=== PATIENT | male | born 1930 | race Caucasian/White ===

== ENCOUNTER 2016-12-01 18:08 | Inpatient (IN) | payer OTHER ==
[~2016-12-01] VITALS: Ht 177.8 cm; Wt 65.9 kg
[~2016-12-01 18:08] MED LIST: ASPIRIN EC81 M1 PO; ATORVASTATIN CA20 MG PO; Aspirin PO; DORZOLAMIDE HYD10 M5 OPH; LOPRESSOR 6.26.25 MG PO; PRINIVIL10 MG PO; TIMOPTIC OPH; [UNRECOGNIZED DRUG - OTHER] OPH
--- NOTE | 2016-12-01 18:20 | ED DYSPNEA/ASTHMA COMPLAINT ---
See Addendum History of Present Illness General Chief Complaint: Dyspnea (COPD, CHF, Other) Stated Complaint: SOB PAST COUPLE DAYS, WORSE TODAY Source: patient, family, EMS Exam Limitations: no limitations Vital Signs & Intake/Output Vital Signs & Intake/Output Vital Signs Date Time Temp Pulse Resp B/P Pulse O2 O2 Flow FiO2 Ox Delivery Rate 12/02 1326 79 145/73 12/02 1200 98 Nasal 2.0L Cannula 12/02 0800 98.3 80 20 152/84 98 Nasal 2.0L Cannula 12/02 0800 100 Nasal 2.0L Cannula 12/02 0505 99 Nasal 2.0L Cannula 12/02 0400 96 Nasal 2.0L Cannula 12/02 0139 98 Nasal 2.0L Cannula 12/02 0139 97.6 88 20 150/80 98 Nasal 1.0L Cannula 12/02 0010 96.8 87 16 112/64 97 Nasal 2.0L Cannula 12/01 2239 96.8 92 24 121/64 92 Nasal 2.0L Cannula 12/01 1958 97.0 87 20 125/70 95 Nasal 2.0L Cannula 12/01 1856 92 Nasal 3.0L Cannula 12/01 1854 92 Nasal 3.0L Cannula 12/01 1834 99 Nasal 3.0L Cannula 12/01 1811 97.2 87 20 124/62 89 Room Air Room Air ED Intake and Output 12/02 0000 12/01 1200 Intake Total 0 Output Total Balance 0 Intake, Oral 0 Patient 148 lb Weight Allergies Coded Allergies: Penicillins (UNKNOWN 12/01/16) Reconcile Medications Albuterol Sulfate (Proair Hfa) 90 MCG HFA.AER.AD 2 PUF INH Q4-6 PRN PRN SOB, DYSPNEA/WHEEZE (Reported) Aspirin (Ecotrin*) 81 MG TABLET.DR 1 TAB PO DAILY HEART/BLOOD (Reported) Dorzolamide HCl/Timolol Maleat (Dorzolamide-Timolol Eye Drops) 22.3 MG-6.8 MG/ML DROPS 1 GTT OPH BID BOTH EYES (Reported) Latanoprost (Xalatan) 0.005 % DROPS 1 GTT OPH QPM BOTH EYES (Reported) Lisinopril 40 MG TABLET 1 TAB PO DAILY BP (Reported) Metoprolol Tartrate 25 MG TABLET 0.5 TAB PO QAM HEART/BP (Reported) Nifedipine (Procardia XL) 90 MG TAB.ER.24 1 TAB PO DAILY HEART/BP (Reported) Prednisone 10 MG TABLET 1 TAB PO BID STEROID (Reported) Triage Nurses Notes Reviewed? yes Onset: Abrupt Duration: day(s):, constant, continues in ED Timing: recent history Severity: moderate, severe HPI: 85-year-old male with a history of hypertension and smoker comes into emergency room for further evaluation of shortness of breath. Patient has been sick for the last couple weeks with a cough and mucus production. Patient was on an oral course of antibiotics and had a chest x-ray which was normal he reports. He reports that today while he was washing up she became very short of breath. He denies any chest pain. Denies any fevers vomiting her sweating. There is no diagnosis of COPD. He sees Dr. Cuevas from cardiology for blood pressure. (STEVE DE LEON) Past History Medical History Any Pertinent Medical History? see below for history Neurological: NONE EENT: cataracts Cardiovascular: hypertension, hyperlipidemia Respiratory: PULMONARY NODULES Gastrointestinal: GERD, ULCERS Hepatic: NONE Renal: NONE Musculoskeletal: NONE Psychiatric: NONE Endocrine: BORDERLINE DM Blood Disorders: NONE Cancer(s): NONE PSYCH ASSISTANT/Reproductive: NONE Other Medical Hx: BPH History of MRSA: No History of VRE: No History of CDIFF: No Surgical History Surgical History: non-contributory Psychosocial History Who do you live with Spouse Services at Home None What is your primary language Austrian Family History Family History, If Any: FATHER Cardiomegaly, Onset: 30-40. BROTHER FH: pancreatic cancer, Onset: 25-30. SISTER FH: breast cancer Hx Contributory? No (STEVE DE LEON) Review of Systems Review of Systems Constitutional: Reports: no symptoms. EENTM: Reports: no symptoms. Respiratory: Reports: see HPI. Cardiovascular: Reports: no symptoms. GI: Reports: no symptoms. Genitourinary: Reports: no symptoms. Musculoskeletal: Reports: no symptoms. Skin: Reports: no symptoms. Neurological/Psychological: Reports: no symptoms. Hematologic/Endocrine: Reports: no symptoms. Immunologic/Allergic: Reports: no symptoms. All Other Systems: Reviewed and Negative (STEVE DE LEON) Physical Exam Physical Exam General Appearance: well developed/nourished, mild distress, thin Head: atraumatic, normal appearance Eyes: Bilateral: normal appearance, EOMI. Ears, Nose, Throat: normal ENT inspection, hearing grossly normal Neck: normal inspection Respiratory: decreased breath sounds, respiratory distress (MILD) Cardiovascular: regular rate/rhythm Gastrointestinal: soft Extremities: MILD CLUBBING OF THE FINGERNAILS, Neurologic/Psych: awake, alert, oriented x 3 Skin: intact, normal color Core Measures ACS in differential dx? Yes Severe Sepsis Present: No Septic Shock Present: No (RC CROSS,STEVE) Progress Differential Diagnosis: asthma, AMI, bronchitis, costochondritis, CHF, COPD, musculoskeletal pain, pericarditis, pulmonary embolism, pneumonia, pneumothorax, rib fracture, unstable angina Plan of Care: Orders Procedure Date/time Status ANTINUCLEAR ANTIBODY 12/02 UNK Active Heart Healthy Diet 12/02 B Active PARTIAL THROMBOPLASTIN TIME 12/02 1430 Active CBC WITHOUT DIFFERENTIAL 12/02 1200 Complete TROPONIN LEVEL 12/02 0630 Complete CBC WITHOUT DIFFERENTIAL 12/02 0630 Complete EKG 12/02 0630 Active OXYGEN SETUP (GEN) 12/02 0507 Complete PARTIAL THROMBOPLASTIN TIME 12/02 0400 Complete CULTURE,URINE 12/02 0229 Active Heparin Drip- AFIB/FLUTTER/PE/ 12/02 0154 Active Weight 12/02 0116 Active Turn and Reposition 12/02 0116 Active Teach/Educate 12/02 011 Active Skin Integrity Protocol 12/02 011 Active Skin/Pressure Ulcer Assess (Sk 12/02 0116 Active Precautions 12/02 0116 Active Pain Treatment and Response 12/02 0116 Active Nutritional Intake, Monitor 12/02 0116 Active Isolation 12/02 0116 Active Patient Care Conference 12/02 0116 Active Activity/Ambulation 12/02 0116 Active TROPONIN LEVEL 12/02 0030 Complete EKG 12/02 0030 Active Code Status 12/02 0017 Active VRE ACTIVE SURVIELLANCE 12/02 0008 Active ACTIVE SURVEILLANCE NARES 12/02 0008 Active Lab Add-on Test 12/02 UNK Active Aguirre, Insertion/Removal/Asses 12/02 UNK Active ICU LAB BUNDLE 12/02 UNK Complete ECHOCARDIOGRAM 12/02 UNK Active Pathway - chart 12/01 2251 Active Patient Data 12/01 2251 Active Admit to inpatient 12/01 2241 Active Patient Data 12/01 2232 Active Add-on Test (ER Only) 04/04 2153 Active PARTIAL THROMBOPLASTIN TIME 12/01 1945 Complete PROTHROMBIN TIME 12/01 194 Complete D-DIMER 12/01 193 Complete ARTERIAL BLOOD GAS (GEN) 12/01 1924 Complete Add-on Test (ER Only) 12/01 1924 Active Telemetry/Manager Local 12/01 181 Complete TROPONIN LEVEL 12/01 1816 Complete COMPREHENSIVE METABOLIC PANEL 12/01 1816 Complete CBC WITHOUT DIFFERENTIAL 12/01 1816 Complete B-TYPE NATRIURETIC PEP (BNP) 12/01 1816 Complete EKG 12/01 1816 Active House Staff 12/01 UNK Active VTE Mechanical Prophylaxis 12/01 UNK Active Vital Signs 12/01 UNK Active Intake & Output 12/01 UNK Active Current Medications Sig/Joselin Start time Last Medication Dose Stop Time Status Admin Apixaban 5 MG BID 12/09 1000 AC (Eliquis) Dorzolamide HCl 1 GTT BID 12/03 1000 AC (Trusopt 2% 10 ML) Latanoprost 1 GTT QPM 12/02 2200 AC (Xalatan) Dorzolamide HCl 1 GTT BID 12/02 1107 CAN (Trusopt 2% 10 ML) Aspirin Buffered 81 MG DAILY 12/02 1000 CAN (Ecotrin) Acetaminophen 650 MG Q6 PRN 12/01 2300 AC (Tylenol) Oxycodone HCl 5 MG Q6 PRN 12/01 2300 AC (Roxicodone) Oxycodone/ 2 TAB Q6 PRN 12/01 2300 AC Acetaminophen (Percocet) Laboratory Tests 12/02/16 1230: APTT Cancelled 12/02/16 1200: CBC w Diff NO MAN DIFF REQ, RBC 4.02 L, MCV 89.3, MCH 29.8, RDW 14.8 H, MPV 8.0, Gran % 86.8 H, Lymphocytes % 5.2 L, Monocytes % 7.9, Eosinophils % 0, Basophils % 0.1, Absolute Granulocytes 11.0 H, Absolute Lymphocytes 0.7 L, Absolute Monocytes 1.0 H, Absolute Eosinophils 0, Absolute Basophils 0, PUBS MCHC 33.4 12/02/16 1000: JELLY Titer Pending, Anti-Nuclear Antibody Pending 12/02/16 0635: Troponin I 0.50 *H, CBC w Diff NO MAN DIFF REQ, RBC 3.91 L, MCV 89.1, MCH 29.7, RDW 14.2, MPV 8.1, Gran % 91.5 H, Lymphocytes % 5.1 L, Monocytes % 3.3, Eosinophils % 0, Basophils % 0.1, Absolute Granulocytes 8.1 H, Absolute Lymphocytes 0.5 L, Absolute Monocytes 0.3, Absolute Eosinophils 0, Absolute Basophils 0, PUBS MCHC 33.3 12/02/16 0420: Anion Gap 12, Estimated GFR 44 L, Glucose 144 H, Calcium 8.5, Phosphorus 3.5, Magnesium 1.9, Total Bilirubin 0.7, AST 21, ALT 31, Albumin 3.0 L, APTT > 120 * H 12/02/1644: Troponin I 0.68 *H 12/01/161945: PT 13.6 H, INR 1.30 H, APTT 27, D-Dimer 3722 H 12/01/161944: pH 7.46 H, pCO2 25 L, pO2 67 L, HCO3 17 L, ABG O2 Sat (Measured) 93.0 L, P- 50 (Temp Corrected) N, Carboxyhemoglobin 0.1 L, O2 Concentration % 2L, Temperature 97.2, O2 Delivery Method NC, Phlebotomy Draw Site RIGHT BRACHIAL 12/01/161822: Anion Gap 13, Estimated GFR 36 L, BUN/Creatinine Ratio 20.0, Glucose 170 H, Calcium 9.8, Total Bilirubin 1.1, AST 29, ALT 32, Alkaline Phosphatase 111, Troponin I 1.17 *H, Etx-E-Yipyrseljdy Pept 5690 H, Total Protein 7.0, Albumin 3.9, Globulin 3.1, Albumin/Globulin Ratio 1.3, CBC w Diff NO MAN DIFF REQ, RBC 4.97, MCV 89.3, MCH 29.4, RDW 14.7 H, MPV 7.7, Gran % 77.1 H, Lymphocytes % 12.9 L, Monocytes % 8.1, Eosinophils % 1.1, Basophils % 0.8, Absolute Granulocytes 8.4 H, Absolute Lymphocytes 1.4, Absolute Monocytes 0.9 H, Absolute Eosinophils 0.1, Absolute Basophils 0.1, PUBS MCHC 33.0 Microbiology 12/02 244 URINE ROUT: Urine Culture - RECD 12/02 44 UPPER RESP: Surveillance Culture - RECD 12/02 44 GI: Surveillance Culture - RECD Diagnostic Imaging: Viewed by Me: Radiology Read. Discussed w/RAD: Radiology Read. Radiology Impression: EXAM TYPE: RAD - XRY-PORTABLE CHEST XRAY EXAMINATION: XR PORTABLE CHEST CLINICAL INFORMATION: Shortness of breath. COMPARISON: Chest . CT chest 03/27/2015 05/01/2014. TECHNIQUE: Portable AP view of the chest was obtained. FINDINGS: Both lungs are fairly well-expanded and clear of acute pneumonic process. There is a 1.1 cm nodule right upper lobe overlying the posterior fourth ribs and 1.4 standard the lingula. They have been described on the previous CT chest exam 05/01/2014 and 03/27/2015. No additional lesions seen. The heart size and pulmonary vascularity is normal. No gross bony abnormality noted. IMPRESSION: No acute cardiopulmonary process seen. 2 pulmonary nodules are seen. These were described on the previous CT chest exam 2013 and 2014 exam. DICTATED BY: AMIRA WEST MD DATE/TIME DICTATED:12/01/161836 CHAIRMAN AND CEO:UMESH DATE/TIME TRANSCRIBED:12/01/161836 Initial ED EKG: normal intervals, normal p-waves, normal sinus rhythm, rate (91) , nonspecific ST T wave chg Prior EKG: changed Comments: 12/01/2016 9:32:03 PM Case was discussed with Dr. Cuevas and Dr. Gomes. Due to high suspicion for pulmonary embolism and the patient had normal creatinines in the past of 1.1 and only one isolated 1.9 creatinine, patient was hydrated with fluids HERE in ED and it was decided to go ahead with the CT angiogram of his chest to rule out pulmonary embolism. I spoke with radiologist and we will give fluids before and after the contrast study. At this time the risk of misdiagnosis outweighs the risk of any type of potential kidney failure from the dye. (STEVE DE LEON) Departure Departure Disposition: STILL A PATIENT Condition: Stable Clinical Impression Primary Impression: Acute electrocardiogram changes Secondary Impressions: Multiple pulmonary emboli, Troponin level elevated Referrals: MARIPOSA GONZALEZ,SARA (PCP/Family) Departure Forms: Customer Survey General Discharge Information Admission Note Spoke With: BOLA GONZALEZ PhD,OFELIA Dawson Documentation of Exam: Documentation of any treatments & extenuating circumstances including Concerns Regarding Discharge (functional status, medication knowledge or non-compliance, living conditions, etc.) that warrant an admission rather than observation: Patient has acute EKG changes. Patient will require cardiac telemetry. Cardiac consultation. Serial troponins. Pulmonary consult. Supplemental oxygen. O2 saturation 89% to 90% on room air. High risk. Patient do poorly as an outpatient. IV heparin, critical care. Dr gomes consulted with dr galeano. Stable for admission at this time. (STEVE DE LEON) PA/MOUNT LOADER Co-Sign Statement Statement: ED Attending supervision documentation- [X] I saw and evaluated the patient. I have also reviewed all the pertinent lab results and diagnostic results. I agree with the findings and the plan of care as documented in the PA's/MOUNT LOADER's documentation. [X] I have reviewed the ED Record and agree with the PA's/MOUNT LOADER's documentation. [] Additions or exceptions (if any) to the PAs/MOUNT LOADER's note and plan are summarized below: [] (WAQAS GONZALEZ,FERNANDA) Critical Care Note Critical Care Note Critical Care Time: 30-74 min (45) (STEVE DE LEON)
--- NOTE | 2016-12-01 18:30 | NUR ---
PT BIBA FROM HOME FOR INCREASED SOB. PT RECENTLY DIAGNOSED WITH URI, AND FINISHED COURSE OF ANTIBIOTICS A COUPLE OF DAYS AGO. PT ARRIVES WITH NO ACUTE DISTRESS NOTED, PT REPORTS DYSPNEA ON EXERTION AND ALSO REPORTS FEELING BETTER WHEN LYING DOWN. PT'S O2 SAT 89% ON RA. PLACED ON 2L NC OXYGEN.
--- NOTE | 2016-12-01 18:36 | NUR ---
LAB GISSEL AND ROBERT. (SST, LAV, BLUE, BOO, PINK)
[2016-12-01 18:37] LABS: ABSOLUTE BASOPHIL COUNT 0.1 /CUMM (0.0-0.2); ABSOLUTE EOSINOPHIL COUNT 0.1 /CUMM (0.0-0.7); ABSOLUTE GRANULOCYTE CT 8.4 /CUMM (1.4-6.5); ABSOLUTE LYMPH COUNT 1.4 /CUMM (1.2-3.4); ABSOLUTE MONOCYTE COUNT 0.9 /CUMM (0.10-0.60); BASOPHIL % 0.8 % (0.0-2.0); EOSINOPHIL % 1.1 % (0-5); GRANULOCYTE % 77.1 % (42.2-75.2); HEMATOCRIT 44.3 % (42-52); MEAN CORPUSCULAR HGB 29.4 PG (27.0-31.0); MEAN CORPUSCULAR VOLUME 89.3 FL (80.0-94.0); MEAN PLATELET VOLUME 7.7 FL (7.4-10.4); PLATELET COUNT 323 /CUMM (130-400); RBC DISTRIBUTION WIDTH 14.7 % (11.5-14.5); RED BLOOD CELL CT 4.97 /CUMM (4.70-6.10); WHITE BLOOD CELL COUNT 10.9 /CUMM (4.8-10.8)
[2016-12-01] MEDS ORDERED: PREDNISONE10 M2 PO (18:40)
[2016-12-01] MEDS ORDERED: PROAIR HFA8.5 GM INH (18:40)
[2016-12-01] MEDS ORDERED: PROCARDIA XL90 M1 PO (18:40)
[2016-12-01] MEDS ORDERED: METOPROLOL TART25 M1 PO (18:41)
[2016-12-01] MEDS ORDERED: LISINOPRIL40 M1 PO (18:41)
[2016-12-01] MEDS ORDERED: XALATAN2.5 ML OPH (18:41)
[2016-12-01] MEDS ORDERED: DORZOLAMIDE-TIM10 ML OPH (18:42)
--- NOTE | 2016-12-01 18:46 | NUR ---
EKG DONE BY STUDENT
--- NOTE | 2016-12-01 18:48 | RADIOLOGY REPORT ---
EXAMINATION: XR PORTABLE CHEST CLINICAL INFORMATION: Shortness of breath. COMPARISON: Chest 11/20/2016. CT chest 03/27/2015 05/01/2014. TECHNIQUE: Portable AP view of the chest was obtained. FINDINGS: Both lungs are fairly well-expanded and clear of acute pneumonic process. There is a 1.1 cm nodule right upper lobe overlying the posterior fourth ribs and 1.4 standard the lingula. They have been described on the previous CT chest exam 05/01/2014 and 03/27/2015. No additional lesions seen. The heart size and pulmonary vascularity is normal. No gross bony abnormality noted. IMPRESSION: No acute cardiopulmonary process seen. 2 pulmonary nodules are seen. These were described on the previous CT chest exam 2013 and 2014 exam.
--- NOTE | 2016-12-01 19:17 | NUR ---
CRITICAL TEST RESULTS [id number] LAURIE DUNHAM 85 M TESTS AND RESULTS: TROPONIN 1.17 Results received and read back by: CARMELLA OSBORN Results received date and time: 12/01/161916 The following provider was notified of the results, and read the results back: STEVE CROSS Notified date and time: 12/01/16 at 1917
--- NOTE | 2016-12-01 19:27 | NUR ---
TAY WILSON AT BEDSIDE TO EXPLAIN PLAN OF CARE.
--- NOTE | 2016-12-01 20:06 | NUR ---
PT MEDICATED PER EMAR. PT DENIES ANY PAIN AT THIS TIME. NS INFUSING. WILL CONTINUE TO MONITOR.
--- NOTE | 2016-12-01 21:42 | NUR ---
PT TAKEN TO CAT SCAN AT THIS TIME VIA STRETCHER.
[2016-12-01 22:00] LABS: PT 13.6 SEC (9.4-12.5); PTT 27 SEC (25-37)
--- NOTE | 2016-12-01 22:24 | CT SCAN REPORT ---
EXAMINATION: CT ANGIOGRAM OF THE CHEST WITH AND WITHOUT CONTRAST (CT PULMONARY ANGIOGRAM FOR PE) CLINICAL INFORMATION: 85-year-old patient with chest pain and elevated d-dimer. Shortness of breath. COMPARISON: Chest x-ray done earlier this evening. TECHNIQUE: Prior to contrast administration, noncontrast localization images were obtained. Subsequently, multidetector volumetric imaging was performed from the thoracic inlet to below the diaphragms following the administration of 80 mL Omnipaque 350 intravenous contrast. No contrast reaction reported. Sagittal, coronal, and MIP oblique sagittal reformatted images were obtained on the CT workstation, uploaded to PACS, and reviewed. Total exam dose-length product 332 mGy-cm. FINDINGS: Commercial Door Installer view shows extensive emphysema in the pulmonary nodule in the left lung. QUALITY OF STUDY/CONTRAST BOLUS: Excellent. PULMONARY ARTERIES: There is extensive clot within the pulmonary arterial circuit. Both lower lobe lobar arteries are filled with clot. There are segmental clots in the left upper and lower lobe. A nonocclusive clot begins at the left main pulmonary artery and extends to the sagittal embolus at the bifurcation. Intraluminal clot begins in the distal right pulmonary artery and extends to all segmental branches of the right lung. Distal subsegmental clots are also seen. There is a high clot burden. THORACIC AORTA: No aneurysm or dissection. Extensive calcific plaque is seen throughout the thoracic aorta and upper abdominal aorta. LUNG: Extensive bullous emphysema involves the upper lobes but also in some areas of lower lobes. The smoothly defined slightly lobulated pulmonary nodule in the lingular segment of the left upper lobe measures 1.2 cm. PLEURA: No pleural effusion or pneumothorax. MEDIASTINUM: Normal heart size. No pericardial effusion. No hilar or mediastinal lymphadenopathy. There is septal bowing indicating right heart strain. CHEST WALL/AXILLA: No axillary or internal mammary lymphadenopathy. OSSEOUS STRUCTURES: A bone island in the posterolateral aspect of the right fifth rib similar to pulmonary nodule on the chest x-ray. There is significant thoracic kyphosis and multilevel degenerative disc disease. UPPER ABDOMEN: The gallbladder has been surgically removed. Reflux into the hepatic veins support a diagnosis of elevated right heart pressures. IMPRESSION: 1. Bilateral extensive pulmonary emboli with high clot burden. 2. Right heart strain. 3. Elevated right atrial pressures. 4. Lobulated pulmonary nodule in the lingula 1.2 cm. 5. Bone island in the posterolateral aspect of the right fifth rib simulates lung nodule on the chest x-ray. 6. Severe bullous emphysema. VTE: Positive. This critical result was discussed with Dr. Waqas Zaman at 10:15 PM on December 01 and it was ascertained that the content and urgency of the report was understood at the time of direct communication.
--- NOTE | 2016-12-01 22:25 | NUR ---
DR ALAN AT BEDSIDE FOR EVAL AND PLAN OF CARE.
--- NOTE | 2016-12-01 22:55 | History & Physical ---
General Information and [facility] MD Statement: I have seen and personally examined LAURIE DUNHAM and documented this H&P. The patient is a 85 year old M who presented with a patient stated chief complaint of [ACUTE SOB]. Source of Information: patient Exam Limitations: no limitations History of Present Illness: This is a 85-year-old male with past medical history of hypertension on lisinopril, metoprolol and nifedipine, hyperlipidemia, borderline diabetes mellitus, previous history of more than 50 years of smoking (half pack per day), quit 4 years ago, 2 glasses of scotch every day since he was a teenager, other than that mostly healthy came in with chief complaint of acute shortness of breath since yesterday. Apparently the patient was doing okay 2 weeks ago weeks ago when he developed some cough cold and congestion.He saw his primary care practitioner Sara Hull MD who did some basic lab work and a chest x-ray which ruled out any pneumonia or any other acute cardiopulmonary findings.He was treated with Z-Fabien, by mouth steroid taper and symptomatic treatment after which he was improving. He completed the entire course of antibiotics. However he noted that yesterday morning after he took his blood pressure pills and aspirin, he felt short of breath, he tried walking around and lying down he felt a little better. He continued to feel short of breath on and off. He laid back in the bed and slept last night after feeling short of breath, when he got up today morning, he had to work very hard felt extremely short of breath and now was feeling discomfort in the chest secondary to labored breathing and therefore came in to [facility]. He denied any pressure-like chest pain, paroxysmal nocturnal dyspnea, lower extremity edema, nausea, vomiting, dizziness, lightheadedness, palpitations. He notes that he has had diarrhea since last few days and yesterday had 1 loose bowel movement. At baseline normally he is constipated. He lives with his at home, does most of his activities of daily living by himself. He walks without any cane or walker, does not drive around much. Sara Hull MD is his PCP and Dr. Cuevas is his senior sous chef. Allergies/Medications Allergies: Coded Allergies: Penicillins (UNKNOWN 12/01/16) Home Med list Albuterol Sulfate (Proair Hfa) 90 MCG HFA.AER.AD 2 PUF INH Q4-6 PRN PRN SOB, DYSPNEA/WHEEZE (Reported) Aspirin (Ecotrin*) 81 MG TABLET.DR 1 TAB PO DAILY HEART/BLOOD (Reported) Dorzolamide HCl/Timolol Maleat (Dorzolamide-Timolol Eye Drops) 22.3 MG-6.8 MG/ML DROPS 1 GTT OPH BID BOTH EYES (Reported) Latanoprost (Xalatan) 0.005 % DROPS 1 GTT OPH QPM BOTH EYES (Reported) Lisinopril 40 MG TABLET 1 TAB PO DAILY BP (Reported) Metoprolol Tartrate 25 MG TABLET 0.5 TAB PO QAM HEART/BP (Reported) Nifedipine (Procardia XL) 90 MG TAB.ER.24 1 TAB PO DAILY HEART/BP (Reported) Prednisone 10 MG TABLET 1 TAB PO BID STEROID (Reported) Compliance With Home Meds: FAIR Past History Travel History Traveled to [place] past 21 day No Medical History Neurological: NONE EENT: cataracts Cardiovascular: hypertension, hyperlipidemia Respiratory: PULMONARY NODULES ?COPD Gastrointestinal: GERD, ULCERS Hepatic: NONE Renal: NONE Musculoskeletal: NONE Psychiatric: NONE Endocrine: BORDERLINE DM Blood Disorders: NONE Cancer(s): NONE LOPPER/Reproductive: NONE Other Medical Hx: BPH History of MRSA: No History of VRE: No History of CDIFF: No Surgical History Surgical History: non-contributory Past Family/Social History Family History Relations & Conditions if any FATHER Cardiomegaly, Onset: 30-40. BROTHER FH: pancreatic cancer, Onset: 25-30. SISTER FH: breast cancer Psychosocial History Who Do You Live With? spouse Services at Home: None Primary Language: Luxembourger ETOH Use: daily 2 glasses of scotch Illicit Drug Use: denies illicit drug use Living Will? yes Functional Ability ADLs Independent: dressing, eating, toileting, bathing. Ambulation: independent IADLs Independent: shopping, housework, food prep. Employment History Employment Retired Profession/Employer pastry sous chef, owned restaurant Review of Systems Review of Systems Constitutional: Denies: chills, diaphoresis, fever, malaise, weakness. EENTM: Denies: blurred vision, double vision, visual changes, eye pain, eye drainage. Cardiovascular: Reports: chest pain, orthopena. Denies: edema, palpitations, peripheral edema, syncope. Respiratory: Reports: short of breath. Denies: cough, hemoptysis, orthopnea, sputum production, stridor, wheezing. GI: Reports: diarrhea. Denies: abdominal pain, bloating, constipation, distention, bowel incontinence, melena, nausea. Genitourinary: Denies: discharge, dysuria, frequency, hematuria. Musculoskeletal: Denies: back pain, gout, joint pain, joint swelling. Skin: Denies: cysts, change in skin color, change in hair/nails, dryness. Neurological/Psychological: Denies: anxiety, ataxia, cognitive dysfunction, confusion, depressed. Hematologic/Endocrine: Reports: see HPI. Immunologic/Allergic: Reports: no symptoms. All Other Systems: Reviewed and Negative Exam & Diagnostic Data Last 24 Hrs of Vital Signs/I&O Vital Signs Date Time Temp Pulse Resp B/P Pulse O2 O2 Flow FiO2 Ox Delivery Rate 12/019 96.8 92 24 121/64 92 Nasal 2.0L Cannula 12/01 1957 97.0 87 20 125/70 95 Nasal 2.0L Cannula 12/02 1855 92 Nasal 3.0L Cannula 12/01 185 92 Nasal 3.0L Cannula 12/01 1834 99 Nasal 3.0L Cannula 12/01 1811 97.2 87 20 124/62 89 Room Air Room Air Physical Exam General Appearance Alert, Oriented X3, Cooperative, No Acute Distress Skin No Rashes, No Breakdown, No Significant Lesion HEENT Atraumatic, PERRLA, EOMI Neck Supple, No JVD Lymphatic no lad Cardiovascular Regular Rate, Normal S1, Normal S2, No Murmurs Lungs Clear to Auscultation, Normal Air Movement Abdomen Normal Bowel Sounds, Soft, No Tenderness Neurological Strength at 5/5 X4 Ext, Normal Tone, Sensation Intact, Cranial Nerves 3-12 NL Extremities No Clubbing, No Cyanosis, No Edema, Normal Pulses Vascular Normal Pulses Last 24 Hrs of Labs/Morris: Laboratory Tests 12/01/161945: PT 13.6 H, INR 1.30 H, APTT 27, D-Dimer 3722 H 12/01/161944: pH 7.46 H, pCO2 25 L, pO2 67 L, HCO3 17 L, ABG O2 Sat (Measured) 93.0 L, P- 50 (Temp Corrected) N, Carboxyhemoglobin 0.1 L, O2 Concentration % 2L, Temperature 97.2, O2 Delivery Method NC, Phlebotomy Draw Site RIGHT BRACHIAL 12/01/161822: Anion Gap 13, Estimated GFR 36 L, BUN/Creatinine Ratio 20.0, Glucose 170 H, Calcium 9.8, Total Bilirubin 1.1, AST 29, ALT 32, Alkaline Phosphatase 111, Troponin I 1.17 *H, Jrt-L-Fbpftlnikyy Pept 5690 H, Total Protein 7.0, Albumin 3.9, Globulin 3.1, Albumin/Globulin Ratio 1.3, CBC w Diff NO MAN DIFF REQ, RBC 4.97, MCV 89.3, MCH 29.4, RDW 14.7 H, MPV 7.7, Gran % 77.1 H, Lymphocytes % 12.9 L, Monocytes % 8.1, Eosinophils % 1.1, Basophils % 0.8, Absolute Granulocytes 8.4 H, Absolute Lymphocytes 1.4, Absolute Monocytes 0.9 H, Absolute Eosinophils 0.1, Absolute Basophils 0.1, PUBS MCHC 33.0 Diagnostic Data CXR Results SERVICE DATE: 12/01/16 EXAM TYPE: RAD - XRY-PORTABLE CHEST XRAY EXAMINATION: XR PORTABLE CHEST MPRESSION: No acute cardiopulmonary process seen. 2 pulmonary nodules are seen. These were described on the previous CT chest exam 2013 and 2014 exam. SERVICE DATE: 12/01/16 EXAM TYPE: CAT - CTA CHEST-PULMONARY EMBOLISM IMPRESSION: 1. Bilateral extensive pulmonary emboli with high clot burden. 2. Right heart strain. 3. Elevated right atrial pressures. 4. Lobulated pulmonary nodule in the lingula 1.2 cm. 5. Bone island in the posterolateral aspect of the right fifth rib simulates lung nodule on the chest x-ray. 6. Severe bullous emphysema. VTE: Positive. Other Results Initial ED EKG: normal intervals, normal p-waves, normal sinus rhythm, rate (91) , nonspecific ST T wave changes Assessment/Plan Assessment: In Summary this is a 85-year-old male with past medical history of hypertension, hyperlipidemia, borderline diabetes mellitus, previous smoker, daily alcohol consumption, with recent treatment of cough,cold and congestion with by mouth azithromycin and short steroid taper, resolved symptoms after being treated by PCP with no evidence of pneumonia on chest x-ray, came in today with worsening shortness of breath and labored breathing 2 days prior to admission with acute worsening shortness of breath since the morning of the day of admission. Vitals in the emergency department patient was afebrile with MAXIMUM TEMPERATURE of 97.2, pulse of 87, respiration of 20, blood pressure of 124/62, he was 89% saturating on room air which improved to 92% on 3 L of nasal cannula. Relevant labs white count of 10.9, H/H of 14.6/44.3, platelet of 323. Electrolytes BUN/creatinine of 36/1.8, potassium elevated at 5.1, sodium of 137. PH 7.46, PCO2 25, PO2 67, bicarbonate of 17. D-dimer elevated at 3722. Troponin I was positive at 1.17. ProBNP elevated at 5690. Chest x-ray did not show any acute cardiopulmonary findings. CTA bilateral extensive pulmonary emboli with high clot burden with right heart strain and elevated right atrial pressure. It also showed low related pulmonary nodule in the lingula 1.2 cm same as before. Severe bullous emphysema. Last acho 02/27/15 - Normal left ventricular size with mild left ventricular hypertrophy. Normal systolic function with no obvious regional wall motion abnormalities. Diastolic filling pattern is consistent with impaired LV relaxation. The ejection fraction is visually estimated at 70%. We'll admit the patient to critical care unit for close monitoring after the finding of bilateral extensive pulmonary emboli with high clot burden. Problem list along with assessment and plan. Problem #1 bilateral extensive pulmonary emboli with high clot burden with right heart strain. The pulmonary emboli seems to be unprovoked, patient does not have any previous history of PE or DVT, no history of immobilization, no history of cancer, the only positive history is recent flulike viral illness after which he says he was resting in bed more than usual, more likeyl seems unprovoked pulmonary emboli,as he is an active person..however ?? immobiltiy 2/2 to recent illness * Continue to monitor vitals every shift. * Continue to maintain oxygen saturation greater than 92% of the time. * Continue IV heparin GTT as per PE protocol. * We'll check bilateral lower extremity Doppler in the a.m. as ultrasound is not available in the nighttime. * Initial set of troponin positive, proBNP elevated, both most likely secondary to the finding of pulmonary emboli. * We will continue to trend EKG and troponin, next one at 12:30 AM and 6:30 AM. * Initial EKG did not show any acute changes, only nonspecific ST-T wave changes. * Patient will need at least 3-6 months of anticoagulation secondary to the presentation of unprovoked PE. * Continue to monitor the patient closely for any kind of hemodynamic instability. * If overnight the patient becomes unstable contact Dr. Cuevas stat. * Last echo 02/27/15 - Normal left ventricular size with mild left ventricular hypertrophy.Normal systolic function with no obvious regional wall motion abnormalities. Diastolic filling pattern is consistent with impaired LV relaxation. The ejection fraction is visually estimated at 70%. * Will obtain echocardiogram to further evaluate for right heart strain Problem #2 Acute kidney injury. * Creatinine noted to be elevated at 1.8. * Previous creatinine was noted to be 1.1 which is baseline in April 2016. * Most likely prerenal in origin. * Continue IV hydration. * Continue to monitor BUN and creatinine. * Avoid all nephrotoxic. * Avoid NSAIDs. * As the probability of PE was very high, patient received contrast in order to rule out PE, the patient received plenty of hydration prior and after the contrast. #3 pulmonary nodule in the lingula 1.2 cm along with posterior lateral aspect of the right fifth rib. * Nodule consistent with previous CAT scan, no change in size. * Continue to follow as outpatient. Problem #4 H/o of hypertension and hyperlipidemia. * We'll hold home medications for now. * If the patient becomes hypertensive consider restarting the patient on blood pressure medications. * We will continue aspirin for now. Case discussed with Dr. Cuevas, Dr. Cuevas to see the patient in a.m. DVT prophylaxis with IV heparin. Patient is full code Moderate severe pain pathway ordered. As Ranked By This Provider Problem List: 1. Troponin level elevated 2. Multiple pulmonary emboli Core Measures/Miscellaneous Acute Coronary Syndrome ACS Diagnosis: No Cerebrovascular Accident CVA/TIA Diagnosis: No Congestive Heart Failure CHF Diagnosis: No Venous Thromboembolism VTE Risk Factors: Age > 40 [facility] prophylaxis d/t: No contraindications No VTE Pharm Prophylaxis d/t: No contraindications VTE Diagnosis: Yes VTE Type: Pulmonary Embolism VTE Confirmed by (Test): CT CHEST ANGIOGRAM Severe Sepsis Severe Sepsis Present: No Septic Shock Septic Shock Present: No Miscellaneous Documentation Attending Case Discussed With: BOLA GONZALEZ PhD,OFELIA Dawson Primary Care Physician: MARIPOSA GONZALEZ,SARA Patient sees these Specialists Dr cuevas Level of Patient Care: Critical Care (CRI) Resident Review Statement Resident Statement: ADMITTED BY RESIDENT
--- NOTE | 2016-12-01 23:09 | NUR ---
PT BED ASSIGNMENT 106
--- NOTE | 2016-12-02 00:04 | NUR ---
REPORT GIVEN TO LUPE ON ICU. BED IS READY.
--- NOTE | 2016-12-02 01:00 | NUR ---
PT UP FROM ER. PLACED ON MONITOR. VSS. CALL LIGHT EXPLAINED. PT ON 2L NC PULSE OX 98% LUNGS CLEAR. PT DENIES SOB OR PAIN. PT HNV AWAITING VOID. PT A/Ox3. HEPARIN GTTS INFUSING AT 24.2 MLS OR 18 UNIT/KG/HR.
[2016-12-02 01:39] VITALS: BP 150/80
--- NOTE | 2016-12-02 03:00 | NUR ---
PT VOIDED 175 MLS. BLADDER SCANNED FOR [address] JEAN BAPTISTE. 900 MLS DARK FLORIAN RETURNED. SCANT BLOOD NOTED TO TIP OF PENIS. AREA CLEANED NO FURTHER BLEEDING NOTED
[2016-12-02 05:30] LABS: PTT > 120 SEC (25-37)
--- NOTE | 2016-12-02 06:30 | NUR ---
PT FOUND TO HAVE NEW MEDINA BLOOD IN URINE. DR. PARRISH NOTIFIED. PER JEAN BAPTISTE IRRIGATED WITH NS. BLOODY URINE RETURNED. DR. CARTER IN TO ASSESS URINE. HEPARIN GTTS STOPPED PER .
[2016-12-02 07:18] LABS: ABSOLUTE BASOPHIL COUNT 0 /CUMM (0.0-0.2); ABSOLUTE EOSINOPHIL COUNT 0 /CUMM (0.0-0.7); ABSOLUTE MONOCYTE COUNT 0.3 /CUMM (0.10-0.60); BASOPHIL % 0.1 % (0.0-2.0); EOSINOPHIL % 0 % (0-5); MEAN CORPUSCULAR HGB 29.7 PG (27.0-31.0); RED BLOOD CELL CT 3.91 /CUMM (4.70-6.10)
[2016-12-02 07:22] LABS: ABSOLUTE GRANULOCYTE CT 8.1 /CUMM (1.4-6.5); ABSOLUTE LYMPH COUNT 0.5 /CUMM (1.2-3.4); GRANULOCYTE % 91.5 % (42.2-75.2); MEAN CORPUSCULAR HGB CONC 33.3 G/DL (33.0-37.0); MEAN CORPUSCULAR VOLUME 89.1 FL (80.0-94.0); MEAN PLATELET VOLUME 8.1 FL (7.4-10.4); PLATELET COUNT 213 /CUMM (130-400); RBC DISTRIBUTION WIDTH 14.2 % (11.5-14.5); WHITE BLOOD CELL COUNT 8.8 /CUMM (4.8-10.8)
[2016-12-02 07:25] LABS: HEMATOCRIT 34.8 % (42-52)
[2016-12-02 08:00] VITALS: BP 152/84
--- NOTE | 2016-12-02 08:57 | PN- Housestaff ---
Subjective Follow-up For: Pulmonary embolism Subjective: Patient seen and examined this morning. He was lying comfortably in bed in no acute distress. Denies any shortness of breath, chest pain, palpitation, dizziness. Remains on IV heparin, A Aguirre catheter was placed yesterday after which patient started to have hematuria. On 2 L of nasal cannula oxygen satting high 90s. Otherwise was within normal limits. Review of Systems Constitutional: Reports: see HPI. Objective Last 24 Hrs of Vital Signs/I&O Laboratory Tests 12/02/16 0635: Troponin I 0.50 *H, CBC w Diff NO MAN DIFF REQ, RBC 3.91 L, MCV 89.1, MCH 29.7, RDW 14.2, MPV 8.1, Gran % 91.5 H, Lymphocytes % 5.1 L, Monocytes % 3.3, Eosinophils % 0, Basophils % 0.1, Absolute Granulocytes 8.1 H, Absolute Lymphocytes 0.5 L, Absolute Monocytes 0.3, Absolute Eosinophils 0, Absolute Basophils 0, PUBS MCHC 33.3 12/02/16 0420: Anion Gap 12, Estimated GFR 44 L, Glucose 144 H, Calcium 8.5, Phosphorus 3.5, Magnesium 1.9, Total Bilirubin 0.7, AST 21, ALT 31, Albumin 3.0 L, APTT > 120 * H 12/02/16 0045: Troponin I 0.68 *H 12/01/161945: PT 13.6 H, INR 1.30 H, APTT 27, D-Dimer 3722 H 12/01/161944: pH 7.46 H, pCO2 25 L, pO2 67 L, HCO3 17 L, ABG O2 Sat (Measured) 93.0 L, P- 50 (Temp Corrected) N, Carboxyhemoglobin 0.1 L, O2 Concentration % 2L, Temperature 97.2, O2 Delivery Method NC, Phlebotomy Draw Site RIGHT BRACHIAL 12/01/16 1823: Anion Gap 13, Estimated GFR 36 L, BUN/Creatinine Ratio 20.0, Glucose 170 H, Calcium 9.8, Total Bilirubin 1.1, AST 29, ALT 32, Alkaline Phosphatase 111, Troponin I 1.17 *H, Jfz-D-Gsjungpglbe Pept 5690 H, Total Protein 7.0, Albumin 3.9, Globulin 3.1, Albumin/Globulin Ratio 1.3, CBC w Diff NO MAN DIFF REQ, RBC 4.97, MCV 89.3, MCH 29.4, RDW 14.7 H, MPV 7.7, Gran % 77.1 H, Lymphocytes % 12.9 L, Monocytes % 8.1, Eosinophils % 1.1, Basophils % 0.8, Absolute Granulocytes 8.4 H, Absolute Lymphocytes 1.4, Absolute Monocytes 0.9 H, Absolute Eosinophils 0.1, Absolute Basophils 0.1, PUBS MCHC 33.0 Microbiology 12/02 244 URINE ROUT: Urine Culture - RECD 12/02 44 UPPER RESP: Surveillance Culture - RECD 12/02 44 GI: Surveillance Culture - RECD Vital Signs Date Time Temp Pulse Resp B/P Pulse O2 O2 Flow FiO2 Ox Delivery Rate 12/02 050 99 Nasal 2.0L Cannula 12/03 399 96 Nasal 2.0L Cannula 12/02 138 98 Nasal 2.0L Cannula 12/02 138 97.6 88 20 150/80 98 Nasal 1.0L Cannula 12/02 9 96.8 87 16 112/64 97 Nasal 2.0L Cannula 12/01 2238 96.8 92 24 121/ 92 Nasal 2.0L Cannula 12/01 195 97.0 87 20 125/70 95 Nasal 2.0L Cannula 12/01 1856 92 Nasal 3.0L Cannula 12/01 185 92 Nasal 3.0L Cannula 12/01 1834 99 Nasal 3.0L Cannula 12/01 181 97.2 87 20 124/62 89 Room Air Room Air Intake & Output 12/02 1600 12/02 0800 12/02 0000 Intake Total 933 0 Output Total 1610 Balance -677 0 Intake, IV 733 Intake, Oral 200 0 Output, Urine 1610 Patient 65.913 kg 67.132 kg Weight Vital Signs Date Time Temp Pulse Resp B/P Pulse O2 O2 Flow FiO2 Ox Delivery Rate 12/02 050 99 Nasal 2.0L Cannula 12/03 399 96 Nasal 2.0L Cannula 12/02 138 98 Nasal 2.0L Cannula 12/02 138 97.6 88 20 150/80 98 Nasal 1.0L Cannula 12/020 96.8 87 16 112/64 97 Nasal 2.0L Cannula 12/01 2238 96.8 92 24 121/64 92 Nasal 2.0L Cannula 12/01 1957 97.0 87 20 125/70 95 Nasal 2.0L Cannula 12/02 1855 92 Nasal 3.0L Cannula 12/01 1853 92 Nasal 3.0L Cannula 12/01 1833 99 Nasal 3.0L Cannula 12/01 1810 97.2 87 20 124/62 89 Room Air Room Air Intake & Output 12/02 1600 12/02 0800 04 0000 Intake Total 933 0 Output Total 1610 Balance -677 0 Intake, IV 733 Intake, Oral 200 0 Output, Urine 1610 Patient 65.913 kg 67.132 kg Weight Physical Exam General Appearance: Alert, Oriented X3, Cooperative, No Acute Distress Cardiovascular: Regular Rate, Normal S1, Normal S2, No Murmurs Lungs: Clear to Auscultation, Normal Air Movement Abdomen: Normal Bowel Sounds, Soft, No Tenderness Extremities: No Clubbing, No Cyanosis, No Edema Current Medications: Current Medications Sig/Joselin Start time Last Medication Dose Route Stop Time Status Admin Acetaminophen 650 MG Q6 PRN 12/01 2300 AC PO Albuterol Sulfate 3 ML ONCE ONE 12/01 1830 DC 12/01 INH 12/01 183 1830 Aspirin 0 .STK-MED ONE 12/01 2001 DC PO Aspirin 325 MG ONCE ONE 12/01 1929 DC 12/01 PO 12/01 Aspirin Buffered 81 MG DAILY 12/02 1000 CAN PO Heparin Sodium 5,000 UNIT ONCE ONE 12/01 2199 DC 12/01 (Porcine) IV 12/01 2200 2220 Heparin Sodium 25,000 UNIT Q24H 12/01 2199 AC 12/01 (Porcine) IV 222 Sodium Chloride 500 ML Heparin Sodium 0 .STK-MED ONE 12/01 2199 DC (Porcine) .ROUTE Ipratropium [place] 2.5 ML ONCE ONE 12/01 183 DC 12/01 INH 12/01 183 1830 Methylprednisolone 0 .STK-MED ONE 12/01 183 DC .ROUTE Methylprednisolone 125 MG ONCE ONE 12/01 1829 DC 12/01 IV 12/01 183 1849 Oxycodone HCl 5 MG Q6 PRN 12/01 2300 AC PO Oxycodone/ 2 TAB Q6 PRN 12/01 2300 AC Acetaminophen PO Sodium Chloride 1,000 ML CONTINOUS INFUSION 12/01 230 AC 12/02 IV 0215 Sodium Chloride 1,000 ML BOLUS ONE 12/01 2145 DC 12/01 IV 12/01 2244 2250 Sodium Chloride 1,000 ML BOLUS ONE 12/01 2130 DC IV 12/01 2229 Sodium Chloride 1,000 ML ONCE ONE 12/01 1915 DC 12/01 IV 12/02 0154 2001 Last 24 Hrs of Lab/Morris Results Last 24 Hrs of Labs/Mics: Laboratory Tests 12/02/16 0635: Troponin I 0.50 *H, CBC w Diff NO MAN DIFF REQ, RBC 3.91 L, MCV 89.1, MCH 29.7, RDW 14.2, MPV 8.1, Gran % 91.5 H, Lymphocytes % 5.1 L, Monocytes % 3.3, Eosinophils % 0, Basophils % 0.1, Absolute Granulocytes 8.1 H, Absolute Lymphocytes 0.5 L, Absolute Monocytes 0.3, Absolute Eosinophils 0, Absolute Basophils 0, PUBS MCHC 33.3 12/02/16 0420: Anion Gap 12, Estimated GFR 44 L, Glucose 144 H, Calcium 8.5, Phosphorus 3.5, Magnesium 1.9, Total Bilirubin 0.7, AST 21, ALT 31, Albumin 3.0 L, APTT > 120 * H 12/02/16 0045: Troponin I 0.68 *H 12/01/161945: PT 13.6 H, INR 1.30 H, APTT 27, D-Dimer 3722 H 12/01/161944: pH 7.46 H, pCO2 25 L, pO2 67 L, HCO3 17 L, ABG O2 Sat (Measured) 93.0 L, P- 50 (Temp Corrected) N, Carboxyhemoglobin 0.1 L, O2 Concentration % 2L, Temperature 97.2, O2 Delivery Method NC, Phlebotomy Draw Site RIGHT BRACHIAL 12/01/16 1823: Anion Gap 13, Estimated GFR 36 L, BUN/Creatinine Ratio 20.0, Glucose 170 H, Calcium 9.8, Total Bilirubin 1.1, AST 29, ALT 32, Alkaline Phosphatase 111, Troponin I 1.17 *H, Auc-W-Xygkfasstjg Pept 5690 H, Total Protein 7.0, Albumin 3.9, Globulin 3.1, Albumin/Globulin Ratio 1.3, CBC w Diff NO MAN DIFF REQ, RBC 4.97, MCV 89.3, MCH 29.4, RDW 14.7 H, MPV 7.7, Gran % 77.1 H, Lymphocytes % 12.9 L, Monocytes % 8.1, Eosinophils % 1.1, Basophils % 0.8, Absolute Granulocytes 8.4 H, Absolute Lymphocytes 1.4, Absolute Monocytes 0.9 H, Absolute Eosinophils 0.1, Absolute Basophils 0.1, PUBS MCHC 33.0 Microbiology 12/02 244 URINE ROUT: Urine Culture - RECD 12/02 44 UPPER RESP: Surveillance Culture - RECD 12/02 44 GI: Surveillance Culture - RECD Assessment/Plan Assessment: In Summary this is a 85-year-old male with past medical history of hypertension, hyperlipidemia, borderline diabetes mellitus, previous smoker, daily alcohol consumption, with recent treatment of cough and cold and congestion with by mouth azithromycin and short steroid taper, resolved symptoms after being treated by PCP with no evidence of pneumonia on chest x-ray, came in today with worsening shortness of breath and labored breathing 2 days prior to admission with acute worsening shortness of breath since the morning of the day of admission. Vitals in the emergency department patient was afebrile with MAXIMUM TEMPERATURE of 97.2, pulse of 87, respiration of 20, blood pressure of 124/62, he was 89% saturating on room air which improved to 92% on 3 L of nasal cannula. Relevant labs white count of 10.9, H/H of 14.6/44.3, platelet of 323. Electrolytes BUN/creatinine of 36/1.8, potassium elevated at 5.1, sodium of 137. PH 7.46, PCO2 25, PO2 67, bicarbonate of 17. D-dimer elevated at 3722. Troponin I was positive at 1.17. ProBNP elevated at 5690. Chest x-ray did not show any acute cardiopulmonary findings. CTA bilateral extensive pulmonary emboli with high clot burden with right heart strain and elevated right atrial pressure. It also showed low related pulmonary nodule in the lingula 1.2 cm same as before. Severe bullous emphysema. Patient admitted to critical care unit for close monitoring after the finding of bilateral extensive pulmonary emboli with high clot burden. Bilateral extensive pulmonary emboli with high clot burden with right heart strain. The pulmonary emboli seems to be unprovoked, patient does not have any previous history of PE or DVT, no history of immobilization, no history of cancer, the only positive history is recent flulike viral illness. Unprovoked pulmonary emboli. Initial set of troponin positive, proBNP elevated, both most likely secondary to the finding of pulmonary emboli. -Continue vitals every shift. -Continue to monitor and oxygen saturation greater than 92% of the time. -Continue IV heparin GTT as per PE protocol. -Bilateral lower extremity Doppler pending. -Initial EKG did not show any acute changes, only nonspecific ST-T wave changes. , Repeat EKG and troponin 1.17>>0.68>>0.50 -Patient will need at least 3-6 months of anticoagulation secondary to the presentation of unprovoked PE. -Continue to monitor the patient closely for any kind of hemodynamic instability. -Echo pending Acute kidney injury. Relevant and creatinine noted to be at 1.8>>1.5. Previous creatinine was noted to be 1.1 which is baseline in April 2016. Most likely prerenal in origin. Continue IV hydration. Continue to monitor BUN and creatinine. Avoid all nephrotoxic. Avoid NSAIDs. As the probability of PE was very high, patient received contrast in order to rule out PE, the patient received plenty of hydration prior and after the contrast. Pulmonary nodule in the lingula 1.2 cm along with posterior lateral aspect of the right fifth rib. Nodule consistent with previous CAT scan, no change in size. Continue to follow as outpatient. H/o of hypertension and hyperlipidemia. We'll hold home medications for now. If the patient becomes hypertensive consider restarting the patient on blood pressure medications. DVT prophylaxis with IV heparin. Patient is full code Moderate severe pain pathway ordered. Problem List: 1. Multiple pulmonary emboli 2. Troponin level elevated Pain Ratin Pain Location: none Pain Goal: Remain pain free Pain Plan: percocet Tylenol Tomorrow's Labs & Rationales: ICU bundle for lytes monitoring CBC for platelets monitoring while on heparin.
--- NOTE | 2016-12-02 09:30 | Cons- Cardiology ---
General Information and HPI Consulting Request Date of Consult: 12/02/16 Requested By: BOLA GONZALEZ PhD,OFELIA Dawson History of Present Illness: Mr. Celestin is an 85 year old male with history of hypertension, dyslipidemia and tobacco abuse. The day before yesterday, this patient awakened and noted the sudden onset of shortness of breath that was better lying down than when sitting up. He denied having any cough, leg swelling or leg discomfort. Despite his shortness of breath he continued to engage in errands and be active. Last evening, this patient became profoundly short of breath and presented to the ER where he was found to have extensive pulmonary emboli. He also demonstrated mildly positive cardiac enzymes. He does admit to a mild precordial chest heaviness without a pleuritic component. Otherwise, he denies any leg discomfort , lightheadedness or palpitations. His chest discomfort has now abated and his shortness of breath is improved this morning. Abdias was initially seen in [facility] a couple years ago for evaluation of a moderate midsternal chest pain. He did rule out for an SC and was risk stratified with a stress test that disclosed electrocardiographic changes without evidence of ischemia on nuclear imaging. It was my feeling that his symptoms and ECG finding were related to subendocardial ischemia from severe hypertension. His blood pressure was 218/110mmHg at that time. He was started on some antihypertensive medications and was discharged with a plan for outpatient follow up. Cardiac workup also included an echocardiogram showing a normal EF of 70% with mild left ventricular hypertropy and impaired LV relasxation. Mild MR, TR, AI and PI were also noted. Finally, there was moderate left atrial enlargement. It should be noted that this recently quit smoking. He had been found to have a lung nodule back in April and is s/p a chest CT and PET scan. Allergies/Medications Allergies: Coded Allergies: Penicillins (UNKNOWN 12/01/16) Home Med List: Albuterol Sulfate (Proair Hfa) 90 MCG HFA.AER.AD 2 PUF INH Q4-6 PRN PRN SOB, DYSPNEA/WHEEZE (Reported) Aspirin (Ecotrin*) 81 MG TABLET.DR 1 TAB PO DAILY HEART/BLOOD (Reported) Dorzolamide HCl/Timolol Maleat (Dorzolamide-Timolol Eye Drops) 22.3 MG-6.8 MG/ML DROPS 1 GTT OPH BID BOTH EYES (Reported) Latanoprost (Xalatan) 0.005 % DROPS 1 GTT OPH QPM BOTH EYES (Reported) Lisinopril 40 MG TABLET 1 TAB PO DAILY BP (Reported) Metoprolol Tartrate 25 MG TABLET 0.5 TAB PO QAM HEART/BP (Reported) Nifedipine (Procardia XL) 90 MG TAB.ER.24 1 TAB PO DAILY HEART/BP (Reported) Prednisone 10 MG TABLET 1 TAB PO BID STEROID (Reported) Review of Systems Review of Systems: recent bronchitis Past History Travel History Traveled to [place] past 21 day No Medical History Blood Transfusion Hx: No Neurological: NONE EENT: cataracts Cardiovascular: hypertension, hyperlipidemia, PVD Respiratory: COPD, emphysema, PULMONARY NODULES Gastrointestinal: GERD, ULCERS Hepatic: NONE Renal: NONE Musculoskeletal: osteoarthritis Psychiatric: anxiety Endocrine: BORDERLINE DM Blood Disorders: NONE Cancer(s): NONE COMPUTER SYSTEMS SOFTWARE ARCHITECT/Reproductive: NONE Other Medical Hx: BPH, hiatal hernia Surgical History Surgical History: cholecystectomy Family History Relations & Conditions If Any: FATHER Cardiomegaly, Onset: 30-40. BROTHER FH: pancreatic cancer, Onset: 25-30. SISTER FH: breast cancer Psychosocial History Where Do You Live? Home Who Do You Live With? spouse Services at Home: None Primary Language: Macedonian Smoking Status: Former Smoker ETOH Use: daily 2 glasses of scotch Illicit Drug Use: denies illicit drug use Living Will? yes Functional Ability ADLs Independent: dressing, eating, toileting, bathing. Ambulation: independent IADLs Independent: shopping, housework, food prep. Employment History Employment: Retired Profession/Employer sous chef, owned restaurant Exam & Diagnostic Data Vital Signs and I&O Vital Signs Date Time Temp Pulse Resp B/P Pulse O2 O2 Flow FiO2 Ox Delivery Rate 12/02 0505 99 Nasal 2.0L Cannula 12/02 0400 96 Nasal 2.0L Cannula 12/02 013 98 Nasal 2.0L Cannula 12/02 138 97.6 88 20 150/80 98 Nasal 1.0L Cannula 12/02 0010 96.8 87 16 112/64 97 Nasal 2.0L Cannula 12/019 96.8 92 24 121/64 92 Nasal 2.0L Cannula 12/018 97.0 87 20 125/70 95 Nasal 2.0L Cannula 12/01 1856 92 Nasal 3.0L Cannula 12/01 185 92 Nasal 3.0L Cannula 12/01 1834 99 Nasal 3.0L Cannula 12/01 1811 97.2 87 20 124/62 89 Room Air Room Air Intake & Output 12/02 0800 12/02 0000 12/01 1600 12/01 0800 12/01 0000 Intake Total 933 0 Output Total 1610 Balance -677 0 Intake, IV 733 Intake, Oral 200 0 Output, Urine 1610 Patient 145 lb 148 lb Weight Physical Exam: General: WD/ WN male in NAD; alert and oriented x 3 HEENT: NC/ AT, PERRL, EOMI Neck: +ve JVD JVD, no carotid bruit Heart: RRR w/o murmur Lungs: clear bilaterally ABdomen: soft, NT, +ve bowel sounds Extremities: no edema Assessment/Plan Assessment/Plan * This patient has extensive pulmonary emboli with evidence of RV strain although he is not hypotensive and is no longer short of breath. He does have some minor hematuria after having a Aguirre catheter placed. Begin Eliquis 10mg BID and monitor his H/H. We will also check for a hypercoagulable state with factor V Leidin, protein C and protein S, antithrombin level and LA. These levels may be off during an acute event and may need to be rechecked if abnormal when off anticoagulation for two weeks. We will need to be cognizant of the possibility of malignancy causing a hypercoagulable state. Obtain an echocardiogram to assess RV function and pressures. Stop aspirin while on Eliquis. Consult Acknowledgment - Thank you for your consult request.
--- NOTE | 2016-12-02 11:40 | ULTRASOUND REPORT ---
EXAMINATION: US RETROPERITONEAL COMPLETE (RENAL) CLINICAL INFORMATION: Bladder or renal mass. BPH. Hematuria.. COMPARISON: None TECHNIQUE: Real-time imaging of the kidneys and bladder. FINDINGS: RIGHT KIDNEY: 9 x 4.2 x 5 cm (SAG x AP x TRV). The kidney is normal in size, contour, and echogenicity. Renal cortical thickness is normal. No calculi or focal parenchymal lesions. No hydronephrosis. LEFT KIDNEY: 9.6 x 4.2 x 4.3 cm cm (SAG x AP x TRV). The kidney is normal in size, contour, and echogenicity. Renal cortical thickness is normal. No calculi or focal parenchymal lesions. No hydronephrosis. BLADDER: Bladder is empty, Aguirre catheter present. Bladder cannot be evaluated. Bilateral ureteral jets are not demonstrated. Prostate measures 4.4 x 2.8 x 5.8 cm, volume 37.4 mL. IMPRESSION: 1. Aguirre catheter present, with empty bladder. Bladder cannot be evaluated. 2. Enlarged prostate, volume 37.4 mL.
--- NOTE | 2016-12-02 11:52 | ULTRASOUND REPORT ---
EXAMINATION: US TRIPLEX LOWER EXTREMITY, BILATERAL CLINICAL INFORMATION: Evaluate for DVT. Pulmonary embolism with shortness of breath COMPARISON: CTA of the chest 12/01/2016 TECHNIQUE: Color-flow triplex imaging with spectral analysis and compression Doppler were performed on the bilateral lower extremities. FINDINGS: Right: There is thrombus present in the posterior tibial vein mid to distal with diminished flow. The deep venous system is otherwise unremarkable on the right Left: Thrombus is present within the greater saphenous vein is junction with the common femoral vein. Thrombus is noted in the lesser saphenous vein at the junction to the popliteal The deep venous system is patent. There is no Walker's cyst. IMPRESSION: Right: Deep vein thrombosis present within the right calf veins involving the posterior tibial veins Left: Thrombus present within the greater and lesser saphenous veins but not in the deep veins. This critical result was discussed with Dr. yue Funes at about 11:30 AM on 12/02/2016 and it was ascertained that the content and urgency of the report was understood at the time of direct communication.
[2016-12-02 12:47] LABS: ABSOLUTE BASOPHIL COUNT 0 /CUMM (0.0-0.2); ABSOLUTE EOSINOPHIL COUNT 0 /CUMM (0.0-0.7); ABSOLUTE LYMPH COUNT 0.7 /CUMM (1.2-3.4); BASOPHIL % 0.1 % (0.0-2.0); EOSINOPHIL % 0 % (0-5); HEMATOCRIT 35.9 % (42-52); MEAN CORPUSCULAR HGB 29.8 PG (27.0-31.0); MEAN CORPUSCULAR HGB CONC 33.4 G/DL (33.0-37.0); MEAN CORPUSCULAR VOLUME 89.3 FL (80.0-94.0); PLATELET COUNT 240 /CUMM (130-400); RBC DISTRIBUTION WIDTH 14.8 % (11.5-14.5); RED BLOOD CELL CT 4.02 /CUMM (4.70-6.10); WHITE BLOOD CELL COUNT 12.7 /CUMM (4.8-10.8)
--- NOTE | 2016-12-02 12:47 | NUR ---
Patient is alert and oriented x's 3, able to follow commands and answer questions appropriately. NSR on tele monitor, HR= 70-80's. SBP: 140-150's and home medications to be given once received from pharmacy. Heparin gtt infusing at this time per order- was placed on hold per house staff orders earilier this morning but was then restarted at 0830 by this RN once Dr. Cuevas was in to assess patient. Next PTT is due at 1430. Currently on 2L nc, lungs clear and diminished- pt c/o shortness of breath only with exertion. Abdomen is soft and non tender with + bowel sounds. Tolerating po well. Aguirre in place draining pink tinged urine- Hematuria has improved during shift (bright red in color at 0800). Aguirre was irrigated but not clots were noted. Urology was consulted and a renal ultrasound was ordered. Skin is intact with no areas of pressure injury noted. NS infusing at 125mls/hr. Pt denies pain and vitals are currently stable. Will start on po eliquis per Dr. Cuevas's orders. BLE US, and ECHO done. Will continue to closely monitor patient.
[2016-12-02 13:14] LABS: GRANULOCYTE % 86.8 % (42.2-75.2)
--- NOTE | 2016-12-02 13:16 | Cons- Urology ---
General Information and HPI Consulting Request Date of Consult: 12/02/16 Requested By: BOLA GONZALEZ PhD,OFELIA Dawson Reason for Consult: gross hematuria Source of Information: patient Exam Limitations: no limitations History of Present Illness: This is an 85-year-old male with PMH of hypertension, hyperlipidemia, borderline DM, long smoking history (i/2ppd for 50 yrs) but quit 4 years ago, who came to the ER with worsening SOB after being treated by his PMD for cough and chills. He has no previous urologic hx other than an enlarged prostate. He has never been to an urologist and has never been on any prostate meds. He admits to some decreased FOS but no other voiding issues. He is generally constipated but had a loose BM yest. Allergies/Medications Allergies: Coded Allergies: Penicillins (UNKNOWN 12/01/16) Home Med List: Albuterol Sulfate (Proair Hfa) 90 MCG HFA.AER.AD 2 PUF INH Q4-6 PRN PRN SOB, DYSPNEA/WHEEZE (Reported) Aspirin (Ecotrin*) 81 MG TABLET.DR 1 TAB PO DAILY HEART/BLOOD (Reported) Dorzolamide HCl/Timolol Maleat (Dorzolamide-Timolol Eye Drops) 22.3 MG-6.8 MG/ML DROPS 1 GTT OPH BID BOTH EYES (Reported) Latanoprost (Xalatan) 0.005 % DROPS 1 GTT OPH QPM BOTH EYES (Reported) Lisinopril 40 MG TABLET 1 TAB PO DAILY BP (Reported) Metoprolol Tartrate 25 MG TABLET 0.5 TAB PO QAM HEART/BP (Reported) Nifedipine (Procardia XL) 90 MG TAB.ER.24 1 TAB PO DAILY HEART/BP (Reported) Prednisone 10 MG TABLET 1 TAB PO BID STEROID (Reported) Current Medications: Current Medications Sig/Joselin Start time Last Medication Dose Route Stop Time Status Admin Acetaminophen 650 MG Q6 PRN 12/01 2300 AC PO Albuterol Sulfate 3 ML ONCE ONE 12/01 1830 DC 12/01 INH 12/01 1831 1830 Apixaban 5 MG BID 12/09 1000 AC PO Apixaban 10 MG BID 12/02 1109 AC PO 12/08 2300 Aspirin 0 .STK-MED ONE 12/01 2001 DC PO Aspirin 325 MG ONCE ONE 12/01 1930 DC 04/04 PO 04/04 1931 2002 Aspirin Buffered 81 MG DAILY 12/02 1000 CAN PO Dorzolamide HCl 1 GTT BID 12/03 1000 AC OPH Dorzolamide HCl 1 GTT BID 12/02 1107 CAN OPH Heparin Sodium 5,000 UNIT ONCE ONE 12/01 2200 DC 12/01 (Porcine) IV 12/01 220 2220 Heparin Sodium 25,000 UNIT Q24H 12/01 2200 AC 12/01 (Porcine) IV 2220 Sodium Chloride 500 ML Heparin Sodium 0 .STK-MED ONE 12/01 2200 DC (Porcine) .ROUTE Ipratropium Garnett 2.5 ML ONCE ONE 12/01 1830 DC 12/01 INH 12/01 1831 1830 Latanoprost 1 GTT QPM 12/02 2200 AC OPH Methylprednisolone 0 .STK-MED ONE 12/01 1833 DC .ROUTE Methylprednisolone 125 MG ONCE ONE 12/01 1830 DC 12/01 IV 12/01 1831 1849 Nifedipine 90 MG DAILY 12/02 1054 AC PO Oxycodone HCl 5 MG Q6 PRN 12/01 2300 AC PO Oxycodone/ 2 TAB Q6 PRN 12/01 2300 AC Acetaminophen PO Sodium Chloride 1,000 ML CONTINOUS INFUSION 12/01 2300 AC 12/02 IV 1021 Sodium Chloride 1,000 ML BOLUS ONE 12/01 2145 DC 12/01 IV 12/01 2244 2250 Sodium Chloride 1,000 ML BOLUS ONE 12/01 2130 DC IV 12/01 2229 Sodium Chloride 1,000 ML ONCE ONE 12/01 1915 DC 12/01 IV 12/02 0154 2002 Timolol Maleate 1 GTT BID 12/02 1108 AC OPH Past History Medical History Blood Transfusion Hx: No Neurological: NONE EENT: cataracts Cardiovascular: hypertension, hyperlipidemia, PVD Respiratory: COPD, emphysema, PULMONARY NODULES Gastrointestinal: GERD, ULCERS Hepatic: NONE Renal: NONE Musculoskeletal: osteoarthritis Psychiatric: anxiety Endocrine: BORDERLINE DM Blood Disorders: NONE Cancer(s): NONE FOOT CASTER/Reproductive: NONE Other Medical Hx: BPH, hiatal hernia Surgical History Pertinent Surgical History: cholecystectomy Family History Relations & Conditions If Any: FATHER Cardiomegaly, Onset: 30-40. BROTHER FH: pancreatic cancer, Onset: 25-30. SISTER FH: breast cancer Psychosocial History Where Do You Live? Home Who Do You Live With? spouse Services at Home: None Primary Language: Macedonian Smoking Status: Former Smoker ETOH Use: daily 2 glasses of scotch Illicit Drug Use: denies illicit drug use Living Will? yes Functional Ability ADLs Independent: dressing, eating, toileting, bathing. Ambulation: independent IADLs Independent: shopping, housework, food prep. Employment History Employment: Retired Profession/Employer: demi chef, owned restaurant Retired? yes Review of Systems Review of Systems Constitutional: Reports: no symptoms. EENTM: Reports: no symptoms. Cardiovascular: Reports: no symptoms. Respiratory: Reports: short of breath. GI: Reports: changes in stool. Genitourinary: Reports: hematuria. Musculoskeletal: Reports: no symptoms. Skin: Reports: no symptoms. Neurological/Psychological: Reports: no symptoms. Hematologic/Endocrine: Reports: no symptoms. Immunologic/Allergic: Reports: no symptoms. Exam & Diagnostic Data Vital Signs and I&O Vital Signs Date Time Temp Pulse Resp B/P Pulse O2 O2 Flow FiO2 Ox Delivery Rate 12/02 1200 98 Nasal 2.0L Cannula 12/02 08 98.3 80 20 152/84 98 Nasal 2.0L Cannula 12/02 0800 100 Nasal 2.0L Cannula 12/02 0505 99 Nasal 2.0L Cannula 12/02 0400 96 Nasal 2.0L Cannula 12/02 0139 98 Nasal 2.0L Cannula 12/02 0139 97.6 88 20 150/80 98 Nasal 1.0L Cannula 12/02 0010 96.8 87 16 112/64 97 Nasal 2.0L Cannula 12/01 2239 96.8 92 24 121/64 92 Nasal 2.0L Cannula 12/01 1958 97.0 87 20 125/70 95 Nasal 2.0L Cannula 12/01 1856 92 Nasal 3.0L Cannula 12/01 1854 92 Nasal 3.0L Cannula 12/01 1834 99 Nasal 3.0L Cannula 12/01 1811 97.2 87 20 124/62 89 Room Air Room Air Intake & Output 12/02 1600 12/02 0800 12/02 0000 12/01 1600 12/01 0800 12/01 0000 Intake Total 933 0 Output Total 1610 Balance -677 0 Intake, IV 733 Intake, Oral 200 0 Output, Urine 1610 Patient 65.913 kg 67.132 kg Weight Physical Exam General Appearance: well developed/nourished, no apparent distress, alert, awake , comfortable Head: atraumatic, normal appearance Eyes: Bilateral: normal appearance. Ears, Nose, Throat: normal ENT inspection Respiratory: no respiratory distress, quiet respiration Gastrointestinal: soft, non-tender Rectal: deferred Neurologic/Psych: awake, alert Cranial Nerves: normal hearing, normal speech Skin: intact Last 24 Hours of Labs: Laboratory Tests 12/02 12/02 12/02 12/02 1230 1200 UNK 0635 Chemistry Troponin I (<0.11 ng/ml) 0.50 *H Coagulation APTT Cancelled Hematology CBC w Diff Pending NO MAN DIFF REQ WBC (4.8 - 10.8 /CUMM) Pending 8.8 RBC (4.70 - 6.10 /CUMM) Pending 3.91 L Hgb (14.0 - 18.0 G/DL) Pending 11.6 L Hct (42 - 52 %) Pending 34.8 L MCV (80.0 - 94.0 FL) Pending 89.1 MCH (27.0 - 31.0 PG) Pending 29.7 RDW (11.5 - 14.5 %) Pending 14.2 Plt Count (130 - 400 /CUMM) Pending 213 MPV (7.4 - 10.4 FL) Pending 8.1 Gran % (42.2 - 75.2 %) Pending 91.5 H Lymphocytes % (20.5 - 51.1 %) Pending 5.1 L Monocytes % (1.7 - 9.3 %) Pending 3.3 Eosinophils % (0 - 5 %) Pending 0 Basophils % (0.0 - 2.0 %) Pending 0.1 Absolute Granulocytes (1.4 - 6.5 /CUMM) Pending 8.1 H Absolute Lymphocytes (1.2 - 3.4 /CUMM) Pending 0.5 L Absolute Monocytes (0.10 - 0.60 /CUMM) Pending 0.3 Absolute Eosinophils (0.0 - 0.7 /CUMM) Pending 0 Absolute Basophils (0.0 - 0.2 /CUMM) Pending 0 PUBS MCHC (33.0 - 37.0 G/DL) Pending 33.3 Immunology JELLY Titer Pending Anti-Nuclear Antibody Pending 12/02 12/02 12/01 12/01 0420 0045 1946 1945 Blood Gas pH (7.35 - 7.45 PH) 7.46 H pCO2 (35 - 45 TORR) 25 L pO2 (80 - 100 TORR) 67 L HCO3 (21 - 28 MEQ/L) 17 L ABG O2 Sat (Measured) (>96.0 %) 93.0 L P-50 (Temp Corrected) N Carboxyhemoglobin (1.5 - 5.0 %) 0.1 L O2 Concentration % 2L Temperature (97.0 - 100.0 FARH) 97.2 O2 Delivery Method NC Chemistry Sodium (137 - 145 mmol/L) 138 Potassium (3.5 - 5.1 mmol/L) 5.2 H Chloride (98 - 107 mmol/L) 108 H Carbon Dioxide (22 - 30 mmol/L) 19 L Anion Gap (5 - 16) 12 BUN (9 - 20 mg/dL) 33 H Creatinine (0.7 - 1.2 mg/dL) 1.5 H Estimated GFR (>60 ml/min) 44 L Glucose (65 - 99 mg/dL) 144 H Calcium (8.4 - 10.2 mg/dL) 8.5 Phosphorus (2.5 - 4.5 mg/dL) 3.5 Magnesium (1.6 - 2.3 mg/dL) 1.9 Total Bilirubin (0.2 - 1.3 mg/dL) 0.7 AST (17 - 59 U/L) 21 ALT (21 - 72 U/L) 31 Troponin I (<0.11 ng/ml) 0.68 *H Albumin (3.5 - 5.0 g/dL) 3.0 L Coagulation PT (9.4 - 12.5 SEC) 13.6 H INR (0.90 - 1.17) 1.30 H APTT (25 - 37 SEC) > 120 *H 27 D-Dimer (70 - 232 ng/ml) 3722 H Miscellaneous Phlebotomy Draw Site RIGHT BRACHIAL 12/01 1822 Chemistry Sodium (137 - 145 mmol/L) 137 Potassium (3.5 - 5.1 mmol/L) 5.1 Chloride (98 - 107 mmol/L) 102 Carbon Dioxide (22 - 30 mmol/L) 21 L Anion Gap (5 - 16) 13 BUN (9 - 20 mg/dL) 36 H Creatinine (0.7 - 1.2 mg/dL) 1.8 H Estimated GFR (>60 ml/min) 36 L BUN/Creatinine Ratio (7 - 25 %) 20.0 Glucose (65 - 99 mg/dL) 170 H Calcium (8.4 - 10.2 mg/dL) 9.8 Total Bilirubin (0.2 - 1.3 mg/dL) 1.1 AST (17 - 59 U/L) 29 ALT (21 - 72 U/L) 32 Alkaline Phosphatase (< 127 U/L) 111 Troponin I (<0.11 ng/ml) 1.17 *H Qas-P-Hmcqjupjuny Pept (<125 pg/mL) 5690 H Total Protein (6.3 - 8.2 g/dL) 7.0 Albumin (3.5 - 5.0 g/dL) 3.9 Globulin (1.9 - 4.2 gm/dL) 3.1 Albumin/Globulin Ratio (1.1 - 2.2 %) 1.3 Hematology CBC w Diff NO MAN DIFF REQ WBC (4.8 - 10.8 /CUMM) 10.9 H RBC (4.70 - 6.10 /CUMM) 4.97 Hgb (14.0 - 18.0 G/DL) 14.6 Hct (42 - 52 %) 44.3 MCV (80.0 - 94.0 FL) 89.3 MCH (27.0 - 31.0 PG) 29.4 RDW (11.5 - 14.5 %) 14.7 H Plt Count (130 - 400 /CUMM) 323 MPV (7.4 - 10.4 FL) 7.7 Gran % (42.2 - 75.2 %) 77.1 H Lymphocytes % (20.5 - 51.1 %) 12.9 L Monocytes % (1.7 - 9.3 %) 8.1 Eosinophils % (0 - 5 %) 1.1 Basophils % (0.0 - 2.0 %) 0.8 Absolute Granulocytes (1.4 - 6.5 /CUMM) 8.4 H Absolute Lymphocytes (1.2 - 3.4 /CUMM) 1.4 Absolute Monocytes (0.10 - 0.60 /CUMM) 0.9 H Absolute Eosinophils (0.0 - 0.7 /CUMM) 0.1 Absolute Basophils (0.0 - 0.2 /CUMM) 0.1 PUBS MCHC (33.0 - 37.0 G/DL) 33.0 Imaging Results: renal US without any renal abn and bladder decompressed from reyes. no ureteral jets able to be seen as a result. enlarged prostate. Assessment/Plan Assessment/Plan 85yo male admitted with bilateral PE on anticoagulation. He had a reyes placed previously and was found to have gross hematuria. He is aware that his prostate is enlarged. NO abn on US imaging of his tract. It is likely from reyes placement as the GH has already improved. No contraindication for A/C. No more imaging needed at this time. FU prn. Consult Acknowledgment - Thank you for your consult request.
[2016-12-02 15:18] LABS: PTT 65 SEC (25-37)
[2016-12-02 16:00] VITALS: BP 125/67
--- NOTE | 2016-12-02 16:00 | NUR ---
PATIENT ALERT AND ORIENTED. DENIES ANY DISTRESS. MOVES ALL EXTREMITIES AND FOLLOWS COMMANDS, ANTHONY. MONITOR NSR WITH NO ECTOPY. LUNGS CLEAR. BELLY SOFT NON TENDER WITH GOOD BOWEL SOUNDS. LAST BM THURSDAY 11/30. JEAN BAPTISTE INTACT DRAINING CLEAR URINE. SKIN INTACT.
[2016-12-03] VITALS: BP 162/80
[2016-12-03 03:32] LABS: PTT 93 SEC (25-37)
[2016-12-03 03:34] LABS: ABSOLUTE BASOPHIL COUNT 0 /CUMM (0.0-0.2); ABSOLUTE EOSINOPHIL COUNT 0 /CUMM (0.0-0.7); ABSOLUTE GRANULOCYTE CT 6.4 /CUMM (1.4-6.5); ABSOLUTE LYMPH COUNT 1.2 /CUMM (1.2-3.4); ABSOLUTE MONOCYTE COUNT 0.7 /CUMM (0.10-0.60); BASOPHIL % 0.3 % (0.0-2.0); EOSINOPHIL % 0.5 % (0-5); GRANULOCYTE % 75.8 % (42.2-75.2); HEMATOCRIT 33.6 % (42-52); MEAN CORPUSCULAR HGB 29.9 PG (27.0-31.0); MEAN CORPUSCULAR HGB CONC 33.8 G/DL (33.0-37.0); MEAN CORPUSCULAR VOLUME 88.3 FL (80.0-94.0); MEAN PLATELET VOLUME 7.8 FL (7.4-10.4); PLATELET COUNT 226 /CUMM (130-400); RBC DISTRIBUTION WIDTH 15.2 % (11.5-14.5); RED BLOOD CELL CT 3.81 /CUMM (4.70-6.10); WHITE BLOOD CELL COUNT 8.4 /CUMM (4.8-10.8)
--- NOTE | 2016-12-03 07:27 | PN- Housestaff ---
Subjective Follow-up For: pulmonary embolism Subjective: She seen and examined this morning. She was lying comfortably in bed in no acute distress. Any shortness of breath, dizziness, palpitation, chest pain, abdominal pain. Aguirre catheter remains in place, has cleared out no episodes of hematuria. Was seen by urologist yesterday, recommended to continue with anticoagulation at this time. Hematuria likely traumatic after Aguirre catheter placement, he does have enlarged prostate which he is aware of. Remains in 2 L of nasal cannula oxygen setting and high 90s. Blood pressure ranging between 110 -140 systolic. afebrile The heparin drip was discontinued, patient starting on Eliquis. Review of Systems Constitutional: Denies: chills, fever. Cardiovascular: Denies: chest pain, palpitations. Respiratory: Denies: cough, short of breath, sputum production. Gastrointestinal: Denies: abdominal pain, constipation, diarrhea, nausea, vomiting. Objective Last 24 Hrs of Vital Signs/I&O Vital Signs Date Time Temp Pulse Resp B/P Pulse O2 O2 Flow FiO2 Ox Delivery Rate 12/03 0000 97.5 67 20 162/80 97 Nasal 2.0L Cannula 12/02 2000 98 Nasal 2.0L Cannula 12/02 1600 98 Nasal 2.0L Cannula 12/02 1600 97.6 65 20 125/67 98 Nasal 2.0L Cannula 12/02 1326 79 145/73 12/02 1200 98 Nasal 2.0L Cannula Intake & Output 12/03 1600 12/03 0800 12/03 0000 Intake Total 1484 Output Total 1500 Balance -16 Intake, IV 1084 Intake, Oral 400 Output, Urine 1500 Physical Exam General Appearance: Alert, Oriented X3, Cooperative, No Acute Distress Cardiovascular: Regular Rate, Normal S1, Normal S2, No Murmurs Lungs: Clear to Auscultation, Normal Air Movement Abdomen: Normal Bowel Sounds, Soft, No Tenderness Extremities: No Clubbing, No Cyanosis, No Edema Current Medications: Current Medications Sig/Joselin Start time Last Medication Dose Route Stop Time Status Admin Acetaminophen 650 MG Q6 PRN 12/01 2300 AC PO Apixaban 5 MG BID 12/09 1000 CAN PO Apixaban 10 MG BID 12/02 1109 AC 12/02 PO 12/08 2300 2106 Aspirin Buffered 81 MG DAILY 12/02 1000 CAN PO Dorzolamide HCl 1 GTT BID 12/03 1000 AC OPH Dorzolamide HCl 1 GTT BID 12/02 1107 CAN OPH Heparin Sodium 25,000 UNIT Q24H 12/01 2200 DC 12/03 (Porcine) IV 0008 Sodium Chloride 500 ML Latanoprost 1 GTT QPM 12/02 2199 AC 12/02 OPH 210 Metoprolol Tartrate 12.5 MG QAM 12/03 1000 AC PO Nifedipine 90 MG DAILY 12/02 1054 AC 12/02 PO 1326 Oxycodone HCl 5 MG Q6 PRN 12/01 2300 AC PO Oxycodone/ 2 TAB Q6 PRN 12/01 2300 AC Acetaminophen PO Sodium Chloride 1,000 ML CONTINOUS INFUSION 12/01 230 AC 12/02 IV 1832 Timolol Maleate 1 GTT BID 12/02 110 AC 12/02 OPH 2105 Last 24 Hrs of Lab/Morris Results Last 24 Hrs of Labs/Mics: Laboratory Tests 12/03/16 0306: Anion Gap 5, Estimated GFR > 60, Glucose 96, Calcium 8.8, Phosphorus 2.3 L, Magnesium 2.1, Total Bilirubin 0.7, AST 19, ALT 29, Albumin 2.7 L, APTT 93 H, CBC w Diff NO MAN DIFF REQ, RBC 3.81 L, MCV 88.3, MCH 29.9, RDW 15.2 H, MPV 7.8, Gran % 75.8 H, Lymphocytes % 14.7 L, Monocytes % 8.7, Eosinophils % 0.5, Basophils % 0.3, Absolute Granulocytes 6.4, Absolute Lymphocytes 1.2, Absolute Monocytes 0.7 H, Absolute Eosinophils 0, Absolute Basophils 0, PUBS MCHC 33.8 12/02/16 1435: APTT 65 H 12/02/16 1230: APTT Cancelled 12/02/16 1200: CBC w Diff NO MAN DIFF REQ, RBC 4.02 L, MCV 89.3, MCH 29.8, RDW 14.8 H, MPV 8.0, Gran % 86.8 H, Lymphocytes % 5.2 L, Monocytes % 7.9, Eosinophils % 0, Basophils % 0.1, Absolute Granulocytes 11.0 H, Absolute Lymphocytes 0.7 L, Absolute Monocytes 1.0 H, Absolute Eosinophils 0, Absolute Basophils 0, PUBS MCHC 33.4 12/02/16 1000: JELLY Titer Pending, Anti-Nuclear Antibody Pending Assessment/Plan Assessment: In Summary this is a 85-year-old male with past medical history of hypertension, hyperlipidemia, borderline diabetes mellitus, previous smoker, daily alcohol consumption, with recent treatment of cough and cold and congestion with by mouth azithromycin and short steroid taper, resolved symptoms after being treated by PCP with no evidence of pneumonia on chest x-ray, came in today with worsening shortness of breath and labored breathing 2 days prior to admission with acute worsening shortness of breath since the morning of the day of admission. Vitals in the emergency department patient was afebrile with MAXIMUM TEMPERATURE of 97.2, pulse of 87, respiration of 20, blood pressure of 124/62, he was 89% saturating on room air which improved to 92% on 3 L of nasal cannula. Relevant labs white count of 10.9, H/H of 14.6/44.3, platelet of 323. Electrolytes BUN/creatinine of 36/1.8, potassium elevated at 5.1, sodium of 137. PH 7.46, PCO2 25, PO2 67, bicarbonate of 17. D-dimer elevated at 3722. Troponin I was positive at 1.17. ProBNP elevated at 5690. Chest x-ray did not show any acute cardiopulmonary findings. CTA bilateral extensive pulmonary emboli with high clot burden with right heart strain and elevated right atrial pressure. It also showed low related pulmonary nodule in the lingula 1.2 cm same as before. Severe bullous emphysema. Patient admitted to critical care unit for close monitoring after the finding of bilateral extensive pulmonary emboli with high clot burden. Bilateral extensive pulmonary emboli with high clot burden with right heart strain. The pulmonary emboli seems to be unprovoked, patient does not have any previous history of PE or DVT, no history of immobilization, no history of cancer, the only positive history is recent flulike viral illness. Unprovoked pulmonary emboli. Initial set of troponin positive, proBNP elevated, both most likely secondary to the finding of pulmonary emboli. -Continue vitals every shift. -Continue to monitor and oxygen saturation greater than 92% of the time. -IV heparin discontinued and started on Eliquis. -Bilateral lower extremity Doppler pending. -Initial EKG did not show any acute changes, only nonspecific ST-T wave changes. , Repeat EKG and troponin 1.17>>0.68>>0.50 -Continue to monitor the patient closely for any kind of hemodynamic instability. -Echo showed ejection fraction of 70%, impaired LV relaxation Acute kidney injury. Relevant and creatinine noted to be at 1.8>>1.5>>1.1(baseline 1.1) Most likely prerenal in origin. Continue IV hydration. Continue to monitor BUN and creatinine. Avoid all nephrotoxic. Avoid NSAIDs. As the probability of PE was very high, patient received contrast in order to rule out PE, the patient received plenty of hydration prior and after the contrast. Pulmonary nodule in the lingula 1.2 cm along with posterior lateral aspect of the right fifth rib. Nodule consistent with previous CAT scan, no change in size. Continue to follow as outpatient. H/o of hypertension and hyperlipidemia. We'll hold home medications for now. If the patient becomes hypertensive consider restarting the patient on blood pressure medications. DVT prophylaxis with IV heparin. Patient is full code Moderate severe pain pathway ordered. Problem List: 1. Multiple pulmonary emboli 2. COPD exacerbation Pain Ratin Pain Location: none Pain Goal: Remain pain free Pain Plan: mild pp Tomorrow's Labs & Rationales: icu bundle DVT/Prophylaxis: pharmacological
[2016-12-03 08:00] VITALS: BP 178/84
--- NOTE | 2016-12-03 08:07 | ECHOCARDIOGRAM REPORT ---
LAURIE DUNHAM Age: 85 : 1930 Gender: M Exam Date: 12/02/2016 10:07 Exam Location: [facility] Ht (in): 70 Wt (lb): 145 BSA: 1.80 BP: 150 / 80 Ordering Physician: Sharon Rodriguez MD Referring Physician: IILANA RODRIGUEZ MD Technologist: Harvey Muhammad Room Number: Indications: SHORTNESS OF BREATH, ACUTE PULMONARY EMBOLISM Rhythm: Sinus Technical Quality: good FINDINGS Left Ventricle Normal left ventricular size, wall thickness and systolic function with no obvious regional wall motion abnormalities. Diastolic filling pattern is consistent with impaired LV relaxation. The ejection fraction is visually estimated at 70%. Right Ventricle The right ventricle is mildly enlarged with normal function. Right Atrium The right atrium is normal in size. Left Atrium The left atrium is normal in size. The interatrial septum is intact. Mitral Valve The mitral valve is normal in structure and function. There is trace mitral regurgitation. Aortic Valve Structurally normal aortic valve without significant sclerosis or stenosis. There is no aortic regurgitation. Tricuspid Valve The tricuspid valve is normal in structure and function. There is trace tricuspid regurgitation. Pulmonary artery systolic pressure is mildly increased to 42mmHg. Pulmonic Valve Structurally normal pulmonic valve. There is no pulmonic regurgitation. Pericardium Normal pericardium without effusion. No pleural effusion. Great Vessels Normal aortic root dimension. The aortic arch and great vessels are well seen and are normal. CONCLUSIONS 1. Normal EF of 70% with impaired LV relaxation. 2. Mild right ventricular enlargement. 3. Trace mitral regurgitation. 4. Trace tricuspid regurgitation. 5. Mild pulmonary hypertension. Stephon Cuevas M.D. (Electronically Signed) Final Date: 03 December 2016 08:06 MEASUREMENTS (Male / Female) Normal Values 2D ECHO LV Diastolic Diameter PLAX 3.4 cm 4.2 - 5.9 / 3.9 - 5.3 cm LV Systolic Diameter PLAX 2.1 cm 2.1 - 4.0 cm LV Fractional Shortening PLAX 38.2 % 25 - 46 % LV Ejection Fraction 2D Teich 69.6 % IVS Diastolic Thickness 1.1 cm LVPW Diastolic Thickness 0.9 cm LV Relative Wall Thickness 0.6 RV Internal Dim ED PLAX 3.7 cm 1.9 - 3.8 cm LVOT Diameter 2.3 cm Aortic Root Diameter 4.0 cm LA Systolic Diameter LX 3.2 cm 3.0 - 4.0 / 2.7 - 3.8 cm DOPPLER AV Peak Velocity 164.0 cm/s AV Peak Gradient 10.8 mmHg AV Mean Velocity 119.0 cm/s AV Mean Gradient 6.0 mmHg AV Velocity Time Integral 33.9 cm LVOT Peak Velocity 79.7 cm/s LVOT Peak Gradient 2.5 mmHg LVOT Mean Velocity 49.6 cm/s LVOT Mean Gradient 1.0 mmHg LVOT Velocity Time Integral 15.3 cm LVOT Stroke Volume 63.6 cm AV Area Cont Eq vti 1.9 cm AV Area Cont Eq pk 2.0 cm MV Peak Velocity 134.0 cm/s MV Peak Gradient 7.2 mmHg MV Mean Velocity 57.8 cm/s MV Mean Gradient 2.0 mmHg Mitral E Point Velocity 54.8 cm/s Mitral A Point Velocity 104.0 cm/s Mitral E to A Ratio 0.5 MV PHT Velocity 72.2 cm/s MV Deceleration Gaston 234.0 cm/s MV Pressure Half Time 92.6 ms MV Area PHT 2.4 cm MV Deceleration Time 398.0 ms TR Peak Velocity 305.0 cm/s TR Peak Gradient 37.2 mmHg Right Atrial Pressure 5.0 mmHg Pulmonary Artery Systolic Pressu 42.2 mmHg Right Ventricular Systolic Press 42.2 mmHg PV Peak Velocity 95.0 cm/s PV Peak Gradient 3.6 mmHg PV Mean Velocity 67.2 cm/s PV Mean Gradient 2.0 mmHg PV Velocity Time Integral 12.3 cm LV E' Lateral Velocity 7.1 cm/s Mitral E to LV E' Lateral Ratio 7.7 LV E' Septal Velocity 5.4 cm/s Mitral E to LV E' Septal Ratio 10.2
--- NOTE | 2016-12-03 15:08 | NUR ---
SHIFT NOTE [id number]: RECEIVED PT IN BED. A+OX3, ON 2L NC, LUNGS CLEAR, NO SOB NOTED. PT DENIES CHEST PAIN. SINUS RHYTHM ON MONITOR. B/P 178/84, MD DE LA FUENTE AWARE, RESTARTED PO METOPROLOL. HEPARIN GTT D/C'D. PT ON PO ELIQUIS FOR +PE AND +DVT. HEART HEALTHY DIET, TOLERATING WELL, NO BM SINCE 4-3. JEAN BAPTISTE IN PLACE, HEMATURIA, SOME CLOTS, TOWARDS THE END OF SHIFT CLEARING UP, JEAN BAPTISTE REMOVED AT 1400. PT DTV [id number]. SKIN INTACT. NO EDEMA NOTED. #20 LF AND #[address] IVF D/C'D. SUGGESTED PT GET OOB TO CON CHAIR, PT REFUSING AT THIS TIME. WILL MONITOR.
[2016-12-03 16:00] VITALS: BP 158/80
--- NOTE | 2016-12-03 16:32 | Patient Discharge Instructions ---
Discharge Instructions General Discharge Information You were seen/treated for: Pulmonary embolism Special Instructions: Take Eliquis as instructed. Very Important- please schedule a follow up appointment with within one week. Watch for any chest pain, shortness of breath, dizziness. In case of emergency go to nearest emergency room. Diet Continue normal diet: Yes Recommended Diet: Heart Healthy Activity Activity Self Limited: Yes Acute Coronary Syndrome Inclusion Criteria At DC or during hospital stay patient has or had the following: ACS DIAGNOSIS No Discharge Core Measures Meds if any: Prescribed or Continued at Discharge Meds if any: NOT Prescribed or Continued at Discharge Congestive Heart Failure Inclusion Criteria At DC or during hospital stay patient has or had the following: CHF DIAGNOSIS No Discharge Core Measures Meds if any: Prescribed or Continued at Discharge Meds if any: NOT Prescribed or Continued at Discharge Cerebrovascular accident Inclusion Criteria At DC or during hospital stay patient has or had the following: CVA/TIA Diagnosis No Discharge Core Measures Meds if any: Prescribed or Continued at Discharge Meds if any: NOT Prescribed or Continued at Discharge Venous thromboembolism Inclusion Criteria VTE Diagnosis Yes VTE Type Pulmonary Embolism (both pe and dvt) VTE Confirmed by (Test) CT CHEST ANGIOGRAM Discharge Core Measures - Per Current guidelines, there needs to be overlap - treatment for the first 5 days of Warfarin therapy. - If discharged on Warfarin prior to 5 days of - overlap therapy, the patient will need to be - assessed for post discharge needs including - *Post discharge parental anticoagulation - *Warfarin and/or parental anticoagulation education - *Follow up date to check INR post discharge At least 5 days overlap therapy as Inpatient No (started on eliquis, no overlap) Meds if any: Prescribed or Continued at Discharge Note: Overlap Therapy is Warfarin and Anticoagulant Meds if any: NOT Prescribed or Continued at Discharge
--- NOTE | 2016-12-03 17:29 | NUR ---
PT ATTEMPTED TO VOID IN URINAL AT SIDE OF BED, PT WAS ABLE TO STAND WITH MINIMAL ASSISTANCE, VOIDED A SMALL AMOUNT OF URINE, BLOODY. HX OF BPH WILL MONITOR.
--- NOTE | 2016-12-03 17:54 | PN- Cardiology ---
Subjective Subjective: * Patient is doing well. No chest discomfort, shortness of breath, lightheadedness or palpitations. * Bilateral DVT's noted in the patient's legs. * cardiac enzymes are coming down * Normal EF on echo with RV enlargement and mildly increased RV pressures * Mild hematuria Objective Vital Signs and I&Os Vital Signs Date Time Temp Pulse Resp B/P Pulse O2 O2 Flow FiO2 Ox Delivery Rate 12/03 1600 Nasal 2.0L Cannula 12/03 1600 98.5 74 22 158/80 94 Nasal 2.0L Cannula 12/03 1015 71 164/68 12/03 1014 78 164/68 12/03 0800 Nasal 2.0L Cannula 12/03 0800 97.1 82 22 178/84 96 Nasal 2.0L Cannula 12/03 0400 97 Nasal 2.0L Cannula 12/03 0000 97.5 67 20 162/80 97 Nasal 2.0L Cannula 12/03 0000 97 Nasal 2.0L Cannula 12/02 2000 98 Nasal 2.0L Cannula Intake & Output 12/03 1600 12/03 0800 04/ 0000 04/ 1600 12/02 0800 04/05 0000 Intake Total 970 1484 1880 933 0 Output Total 2460 1500 1000 1610 Balance -1490 -16 880 -677 0 Intake, IV 250 1084 1120 733 Intake, Oral 720 400 760 200 0 Number 0 Bowel Movements Output, Urine 2460 1500 1000 1610 Patient 145 lb 145 lb 148 lb Weight Physical Exam: General: WD/ WN male in NAD; alert and oriented x 3 Neck: +ve JVD, no carotid bruit Heart: RRR w/o murmur Lungs: clear bilaterally Extremities: no edema Assessment/Plan Assessment/Plan * This patient continues to have some minor hematuria but his H/H has just a slight downward trend. We will continue his anticoagulation and continue to monitor his urine and H/H. The patient's echo does show some RV enlargement along with mildly increased RV pressures but he is not symptomatic and is hemodynamically stable. We will monitor him in the ICU for another day. Continue telemetry? Yes
[2016-12-03 20:00] VITALS: BP 150/84
--- NOTE | 2016-12-03 23:15 | NUR ---
PATIENT WAS ENDORSED TO LELIA MONSIVAIS AT 11PM PATIENT IS A/O X 3, PERRLA, MOVE ALL THE LIMBS, OBEYS COMMAND, DENIES ANY PAIN. AFEBRILE, SINUS RHYTHM AT 70'S TO 80'S, STABLE BP AT 120'S TO 130'S SYSTOLIC, NO CHEST PAIN. BREATHING SPONTANEOUSLY ON NC AT 2L/MINUTE, HAS GOOD O2 SATURATION AT 94 TO 96%, NO SOB NOTED. ABDOMEN IS SOFT, GOOD BOWEL SOUNDS, ON HEART HEALTHY DIET, LASRT BM WAS ON THE November. NOTED TO HAVE SLIGHT HEMATURIA, JEAN BAPTISTE WAS REMOVED DURING THE MORNING SHIFT. SKIN IS INTACT.
[2016-12-04] VITALS: BP 160/80
--- NOTE | 2016-12-04 06:00 | NUR ---
PATIENT ALERT AND ORIENTED. MONITOR SINUS RHYTHM. NASAL O2 ON AT 2L.NO DYSPNEA NOTED.LUNG SOUNDS CLEAR.DENIES PAIN OR DYSPNEA.
[2016-12-04 07:06] LABS: ABSOLUTE BASOPHIL COUNT 0 /CUMM (0.0-0.2); ABSOLUTE EOSINOPHIL COUNT 0 /CUMM (0.0-0.7); ABSOLUTE LYMPH COUNT 0.6 /CUMM (1.2-3.4); ABSOLUTE MONOCYTE COUNT 0.9 /CUMM (0.10-0.60); BASOPHIL % 0.3 % (0.0-2.0); EOSINOPHIL % 0.6 % (0-5); GRANULOCYTE % 81.3 % (42.2-75.2); HEMATOCRIT 36.8 % (42-52); MEAN CORPUSCULAR HGB 29.6 PG (27.0-31.0); MEAN CORPUSCULAR HGB CONC 33.2 G/DL (33.0-37.0); MEAN CORPUSCULAR VOLUME 89.1 FL (80.0-94.0); MEAN PLATELET VOLUME 7.7 FL (7.4-10.4); PLATELET COUNT 239 /CUMM (130-400); RBC DISTRIBUTION WIDTH 14.9 % (11.5-14.5); RED BLOOD CELL CT 4.13 /CUMM (4.70-6.10); WHITE BLOOD CELL COUNT 8.6 /CUMM (4.8-10.8)
[2016-12-04 08:00] VITALS: BP 162/90
--- NOTE | 2016-12-04 08:00 | PN- Housestaff ---
Subjective Follow-up For: Pulmonary embolism Subjective: Patient seen and examined this morning. He was lying comfortably in bed in no acute distress. Denies Any shortness of breath, dizziness, palpitation, chest pain, abdominal pain. Aguirre catheter discontinued, no repeat episodes of hematuria Was seen by urologist, recommended to continue with anticoagulation at this time. Hematuria likely traumatic after Aguirre catheter placement, he does have enlarged prostate which he is aware of. Remains in 2 L of nasal cannula oxygen setting and high 90s. Blood pressure ranging between 130 -157 systolic, lisinopril 40 mg was started. afebrile The heparin drip discontinued 12/04, patient starting on Eliquis. Review of Systems Constitutional: Denies: chills, fever. Cardiovascular: Denies: chest pain, palpitations. Respiratory: Denies: cough, short of breath, sputum production. Gastrointestinal: Denies: abdominal pain, constipation, diarrhea, nausea, vomiting. Genitourinary: Denies: dysuria, frequency. Objective Last 24 Hrs of Vital Signs/I&O Vital Signs Date Time Temp Pulse Resp B/P Pulse O2 O2 Flow FiO2 Ox Delivery Rate 12/04 0636 98.3 80 24 180/80 12/04 0635 98.3 80 24 180/80 12/04 0400 96 Nasal 2.0L Cannula 12/04 0000 98.1 72 20 160/80 95 Nasal 2.0L Cannula 12/04 0000 95 Nasal 2.0L Cannula 12/04 1999 96 Nasal 2.0L Cannula 12/04 1999 98.7 80 30 150/84 96 Nasal 2.0L Cannula 12/03 1600 Nasal 2.0L Cannula 12/03 1600 98.5 74 22 158/80 94 Nasal 2.0L Cannula 12/03 1015 71 164/68 12/03 1014 78 164/68 Intake & Output 12/04 1600 12/04 0800 12/04 0000 Intake Total 100 680 Output Total 550 470 Balance -450 210 Intake, Oral 100 680 Output, Urine 550 470 Physical Exam General Appearance: Alert, Oriented X3, Cooperative, No Acute Distress Cardiovascular: Regular Rate, Normal S1, Normal S2, No Murmurs Lungs: Clear to Auscultation, Normal Air Movement Abdomen: Normal Bowel Sounds, Soft, No Tenderness Extremities: No Clubbing, No Cyanosis, No Edema Current Medications: Current Medications Sig/Joselin Start time Last Medication Dose Route Stop Time Status Admin Acetaminophen 650 MG Q6 PRN 12/01 2300 AC PO Apixaban 10 MG BID 12/02 1109 AC 12/03 PO 12/08 230 2156 Dorzolamide HCl 1 GTT BID 12/03 1000 AC 12/03 OPH 2157 Latanoprost 1 GTT QPM 12/02 2200 AC 12/03 OPH 2157 Lisinopril 40 MG DAILY 12/04 1000 AC PO Metoprolol Tartrate 12.5 MG QAM 12/03 1000 AC 12/04 PO 0635 Nifedipine 90 MG DAILY 12/02 1054 AC 12/04 PO 0636 Oxycodone HCl 5 MG Q6 PRN 12/01 2300 AC PO Oxycodone/ 2 TAB Q6 PRN 12/01 230 AC Acetaminophen PO Sodium Chloride 1,000 ML CONTINOUS INFUSION 12/01 230 DC 12/02 IV 1832 Timolol Maleate 1 GTT BID 12/02 1108 AC 12/03 OPH 215 Last 24 Hrs of Lab/Morris Results Last 24 Hrs of Labs/Mics: Laboratory Tests 12/04/16 0645: Anion Gap 8, Estimated GFR > 60, Glucose 95, Calcium 9.2, Phosphorus 2.9, Magnesium 1.8, Total Bilirubin 1.0, AST 17, ALT 32, Albumin 3.0 L, CBC w Diff NO MAN DIFF REQ, RBC 4.13 L, MCV 89.1, MCH 29.6, RDW 14.9 H, MPV 7.7, Gran % 81.3 H, Lymphocytes % 7.4 L, Monocytes % 10.4 H, Eosinophils % 0.6, Basophils % 0.3, Absolute Granulocytes 7.0 H, Absolute Lymphocytes 0.6 L, Absolute Monocytes 0.9 H, Absolute Eosinophils 0, Absolute Basophils 0, PUBS MCHC 33.2 12/03/16 1000: APTT Cancelled Assessment/Plan Assessment: In Summary this is a 85-year-old male with past medical history of hypertension, hyperlipidemia, borderline diabetes mellitus, previous smoker, daily alcohol consumption, with recent treatment of cough and cold and congestion with by mouth azithromycin and short steroid taper, resolved symptoms after being treated by PCP with no evidence of pneumonia on chest x-ray, came in today with worsening shortness of breath and labored breathing 2 days prior to admission with acute worsening shortness of breath since the morning of the day of admission. Vitals in the emergency department patient was afebrile with MAXIMUM TEMPERATURE of 97.2, pulse of 87, respiration of 20, blood pressure of 124/62, he was 89% saturating on room air which improved to 92% on 3 L of nasal cannula. Relevant labs white count of 10.9, H/H of 14.6/44.3, platelet of 323. Electrolytes BUN/creatinine of 36/1.8, potassium elevated at 5.1, sodium of 137. PH 7.46, PCO2 25, PO2 67, bicarbonate of 17. D-dimer elevated at 3722. Troponin I was positive at 1.17. ProBNP elevated at 5690. Chest x-ray did not show any acute cardiopulmonary findings. CTA bilateral extensive pulmonary emboli with high clot burden with right heart strain and elevated right atrial pressure. It also showed low related pulmonary nodule in the lingula 1.2 cm same as before. Severe bullous emphysema. Patient admitted to critical care unit for close monitoring after the finding of bilateral extensive pulmonary emboli with high clot burden. Bilateral extensive pulmonary emboli with high clot burden with right heart strain. The pulmonary emboli seems to be unprovoked, patient does not have any previous history of PE or DVT, no history of immobilization, no history of cancer, the only positive history is recent flulike viral illness. Unprovoked pulmonary emboli. Initial set of troponin positive, proBNP elevated, both most likely secondary to the finding of pulmonary emboli. -Continue vitals every shift. -Continue to monitor and oxygen saturation greater than 92% of the time. -IV heparin discontinued 12/02 and started on Eliquis. -Bilateral lower extremity Doppler evidence of DVT bilaterally. -Initial EKG did not show any acute changes, only nonspecific ST-T wave changes. , Repeat EKG and troponin 1.17>>0.68>>0.50 -Continue to monitor the patient closely for any kind of hemodynamic instability. -Echo showed ejection fraction of 70%, impaired LV relaxation Acute kidney injury. Elevated creatinine upon presentation 1.8>>1.5>>1.1(baseline 1.1) Most likely prerenal in origin, improved with IV hydration. Avoid all nephrotoxic. Avoid NSAIDs. Pulmonary nodule in the lingula 1.2 cm along with posterior lateral aspect of the right fifth rib. Nodule consistent with previous CAT scan, no change in size. Continue to follow as outpatient. H/o of hypertension and hyperlipidemia. We'll hold home medications for now. -Continue metoprolol, lisinopril, nifedipine. DVT prophylaxis with requests Patient is full code Moderate severe pain pathway ordered. Problem List: 1. Multiple pulmonary emboli 2. COPD exacerbation Pain Ratin Pain Location: none Pain Goal: Remain pain free Pain Plan: moderate pp Tomorrow's Labs & Rationales: cbc for h&h monitroing bep for lytes monitoring moderate pp Tomorrow's Labs & Rationales: cbc for h&h monitroing bep for lytes monitoring
[2016-12-04 10:24] VITALS: BP 160/90
[2016-12-04] MEDS ORDERED: ELIQUIS5 M1 PO (13:53)
--- NOTE | 2016-12-04 17:02 | PN- Cardiology ---
Subjective Subjective: * No symptoms of shortness of breath at rest although he did note some SOB upon ambulation. No desaturation. * creatinine normalized to 1.1 * Improved H/H Objective Vital Signs and I&Os Vital Signs Date Time Temp Pulse Resp B/P Pulse O2 O2 Flow FiO2 Ox Delivery Rate 12/04 1024 80 160/90 12/04 08 98 Nasal 2.0L Cannula 12/04 08 98.0 82 18 162/90 98 Nasal 2.0L Cannula 12/04 0636 98.3 80 24 180/80 12/04 0635 98.3 80 24 180/80 12/04 0400 96 Nasal 2.0L Cannula 12/04 0000 98.1 72 20 160/80 95 Nasal 2.0L Cannula 12/04 0000 95 Nasal 2.0L Cannula 12/04 1999 96 Nasal 2.0L Cannula 12/04 1999 98.7 80 30 150/84 96 Nasal 2.0L Cannula Intake & Output 12/04 1600 12/04 0800 12/04 0000 12/03 1600 12/03 0000 Intake Total 100 515 669 1004 Output Total 822 900 9289 1500 Balance -450 210 -1490 -16 Intake, IV 250 1084 Intake, Oral 100 680 720 400 Number 0 Bowel Movements Output, Urine 233 082 2201 1500 Patient 145 lb Weight Physical Exam: General: WD/ WN male in NAD; alert and oriented x 3 Neck: No JVD, no carotid bruit Heart: RRR w/o murmur Lungs: clear bilaterally Extremities: no edema Assessment/Plan Assessment/Plan * This patient has ambulated a short distance without desaturation and is not short of breath. His H/H is stable without any concerning hematuria. We will discharge this patient to home on Eliquis 10mg BID to complete 7 days and then he should decrease his dose to 5mg BID. Follow up is recommended in the office next week. No change in other pre-admission medications. Continue telemetry? No
--- NOTE | 2016-12-09 21:29 | Discharge Summary ---
See Addendum Visit Information Visit Dates Admission Date: 12/01/16 Discharge Date: 12/04/16 Hospital Course Course Attending Physician: BOLA GONZALEZ PhD,OFELIA Dawson Primary Care Physician: MARIPOSA GONZALEZ,Sho[place] Hospital Course: This is a 85-year-old male with past medical history of hypertension, hyperlipidemia, borderline diabetes mellitus, previous smoker, daily alcohol consumption, with recent treatment of cough and cold and congestion with by mouth azithromycin and short steroid taper, resolved symptoms after being treated by PCP with no evidence of pneumonia on chest x-ray, came in with worsening shortness of breath and labored breathing 2 days prior to admission with acute worsening shortness of breath. Vitals in the emergency department patient was afebrile with MAXIMUM TEMPERATURE of 97.2, pulse of 87, respiration of 20, blood pressure of 124/62, he was 89% saturating on room air which improved to 92% on 3 L of nasal cannula. Relevant labs white count of 10.9, H/H of 14.6/44.3, platelet of 323. Electrolytes BUN/creatinine of 36/1.8, potassium elevated at 5.1, sodium of 137. PH 7.46, PCO2 25, PO2 67, bicarbonate of 17. D-dimer elevated at 3722. Troponin I was positive at 1.17. ProBNP elevated at 5690. Chest x-ray did not show any acute cardiopulmonary findings. CTA bilateral extensive pulmonary emboli with high clot burden with right heart strain and elevated right atrial pressure. It also showed low related pulmonary nodule in the lingula 1.2 cm same as before. Severe bullous emphysema. Patient was admitted to critical care unit for close monitoring after the finding of bilateral extensive pulmonary emboli with high clot burden. Bilateral extensive pulmonary emboli with high clot burden with right heart strain. Likely unprovoked. Bilateral lower extremity Doppler showed evidence of DVT bilaterally. Patient was started on IV heparin,troponin 1.17>>0.68>>0.50, proBNP elevated. Patient was monitored closely for any hemodynamic instability, he was maintained on oxygen to keep sats above 90%. IV heparin was discontinued and patient was started on Eliquis, which she has to continue upon discharge, patient advised to take Eliquis as described and follow-up with Dr. Cuevas within 1 week for dose adjustment. Acute kidney injury. Elevated creatinine upon presentation 1.8>>1.5>>1.1(baseline 1.1) Most likely prerenal in origin, improved with IV hydration. Pulmonary nodule in the lingula 1.2 cm along with posterior lateral aspect of the right fifth rib. Nodule consistent with previous CAT scan, no change in size. Patient advised to continue to follow as outpatient. H/o of hypertension and hyperlipidemia. -Continued on metoprolol, lisinopril, nifedipine. BP remained adequatley controlled DVT prophylaxis Patient is full code Moderate severe pain pathway ordered. Allergies: Coded Allergies: Penicillins (UNKNOWN 12/01/16) Disposition Summary Disposition Principal Diagnosis: Bilateral extensive pulmonary emboli with high clot burden with right heart strain. Acute kidney injury Pulmonary nodule in the lingula 1.2 cm along with posterior lateral aspect of the right fifth rib. Additional Diagnosis: H/o of hypertension and hyperlipidemia. Discharge Disposition: home or self care Discharge Instructions General Discharge Information Code Status: Full Code Patient's Diet: Heart healthy Patient's Activity: As tolerated Follow-Up Instructions/Appts: Patient advised to follow up with within one week. Take Eliquis as directed. Medications at Discharge Discharge Medications: Stop taking the following medications: Prednisone (Prednisone) 10 MG TABLET ORAL TWICE DAILY Qty = 30 Continue taking these medications: Aspirin (Ecotrin*) 81 MG TABLET. 1 Tablet ORAL DAILY Comments: Last Taken:NOT GIVEN IN HOSPITAL Time: Albuterol Sulfate (Proair Hfa) 90 MCG HFA.AER.AD 2 Puff Inhale through mouth EVERY 4-6 HOURS NEEDED as needed for SOB, DYSPNEA/WHEEZE Qty = 8 Comments: Last Taken: NOT GIVEN TODAY Time: Nifedipine (Procardia XL) 90 MG TAB.ER.24 1 Tablet ORAL DAILY Qty = 30 Comments: Last Taken:12/04/16 Time:1000 Lisinopril (Lisinopril) 40 MG TABLET 1 Tablet ORAL DAILY Qty = 90 Comments: Last Taken:12/04/16 Time:1000 Metoprolol Tartrate (Metoprolol Tartrate) 25 MG TABLET 0.5 Tablet ORAL Every Morning Qty = 15 Comments: Last Taken:12/04/16 Time: Latanoprost (Xalatan) 0.005 % DROPS 1 Drop In the eye Every night Qty = 3 Comments: Last Taken:12/03 Time:1000 Dorzolamide HCl/Timolol Maleat (Dorzolamide-Timolol Eye Drops) 22.3 MG-6.8 MG/ML DROPS 1 Drop In the eye TWICE DAILY Qty = 10 Comments: Last Taken:12/04/16 Time:1000 Start taking the following new medications: Apixaban (Eliquis) 5 MG TABLET 1 Tablet ORAL See Instructions Qty = 30 Refills = 1 Instructions: take 2 pills tonight 12/04 take 2 pills(total of 10mg) twice daily till 12/08 then take 1 pill(total of 5mg) twice daily call for further dose adjustment Copies To: BOLA GONZALEZ PhD,OFELIA Dawson
== END 2016-12-04 15:43 | DRG 176 ==
LOC: ENRESERVDT → ENRESERVTM → ERH 18:08 → CRI 22:41 → ERHI 22:41 → CRI 12-02 00:25
PROVIDERS: Dermatology; Internal Medicine; Physician Assistant Medical; Student in an Organized Health Care Education/Training Program; ADMIT Internal Medicine Interventional Cardiology
DX: I26.99 Other pulmonary embolism without acute cor pulmonale (principal); N17.9 Acute kidney failure, unspecified; J44.9 Chronic obstructive pulmonary disease, unspecified; R31.0 Gross hematuria; I73.9 Peripheral vascular disease, unspecified; I10 Essential (primary) hypertension; E78.5 Hyperlipidemia, unspecified; K21.9 Gastro-esophageal reflux disease without esophagitis; R91.8 Other nonspecific abnormal finding of lung field; Z87.891 Personal history of nicotine dependence
CPT/HCPCS: CCU; ERO; 36415; 76775; 82436; 87086; 93005; 93010; 93306; 93970; 96374; 96375; 97116-GO; 97161-GP; 99291; J1644; J2930

== ENCOUNTER 2016-12-18 09:46 | Emergency (ER) | payer OTHER ==
[~2016-12-18] VITALS: Ht 177.8 cm; Wt 67.1 kg
[~2016-12-18 09:46] MED LIST changes: +DORZOLAMIDE-TIM10 ML OPH; +ELIQUIS5 M1 PO; +LISINOPRIL40 M1 PO; +METOPROLOL TART25 M1 PO; +PREDNISONE10 M2 PO; +PROAIR HFA8.5 GM INH; +PROCARDIA XL90 M1 PO; +XALATAN2.5 ML OPH
[2016-12-18 09:53] VITALS: BP 186/79
--- NOTE | 2016-12-18 10:37 | ED GI/GU/ABDOMINAL COMPLAINT ---
History of Present Illness General Chief Complaint: Male Genitourinary Problems Stated Complaint: FREQUENT URINATION Source: patient, old records Exam Limitations: no limitations Vital Signs & Intake/Output Vital Signs & Intake/Output Vital Signs Date Time Temp Pulse Resp B/P B/P Pulse O2 O2 Flow FiO2 Mean Ox Delivery Rate 12/18 0953 97.2 70 18 186/79 95 Room Air Allergies Coded Allergies: Penicillins (UNKNOWN 12/01/16) Reconcile Medications Albuterol Sulfate (Proair Hfa) 90 MCG HFA.AER.AD 2 PUF INH Q4-6 PRN PRN SOB, DYSPNEA/WHEEZE (Reported) Apixaban (Eliquis) 5 MG TABLET 1 TAB PO SI clots take 2 pills tonight 12/04 take 2 pills(total of 10mg) twice daily till 12/08 then take 1 pill(total of 5mg) twice daily call for further dose adjustment Aspirin (Ecotrin*) 81 MG TABLET.DR 1 TAB PO DAILY HEART/BLOOD (Reported) Dorzolamide HCl/Timolol Maleat (Dorzolamide-Timolol Eye Drops) 22.3 MG-6.8 MG/ML DROPS 1 GTT OPH BID BOTH EYES (Reported) Latanoprost (Xalatan) 0.005 % DROPS 1 GTT OPH QPM BOTH EYES (Reported) Lisinopril 40 MG TABLET 1 TAB PO DAILY BP (Reported) Metoprolol Tartrate 25 MG TABLET 0.5 TAB PO QAM HEART/BP (Reported) Nifedipine (Procardia XL) 90 MG TAB.ER.24 1 TAB PO DAILY HEART/BP (Reported) Sulfamethoxazole/Trimethoprim (Bactrim Ds Tablet) 800 MG-160 MG TABLET 1 TAB PO BID UTI Tamsulosin HCl (Flomax) 0.4 MG CAP.ER.24H 1 CAP PO DAILY URINARY RETENTION Triage Note: PT STATES THAT HE CALLED DR NAVA OFFICE THIS AM DUE TO 2 DAYS OF URINARY FREQUENCY AND PAIN WITH URINATION, WAS TOLD TO COME TO ER. Triage Nurses Notes Reviewed? yes Onset: Abrupt Duration: day(s): (2) Timing: multiple episodes today Location: suprapubic Radiation: no radiation Activities at Onset: none No Modifying Factors: none Associated Symptoms: dysuria HPI: 85 year old male with history of BPH, pe recently diagnosed on eliquis who was discharged 12/04 who presents with a 2 day history of difficulty urinating. Last steady urinary stream was this morning but feels like he has difficulty getting it out. Complains of pelvic pressure in his penis. Denies blood in urine or discharge. History of previous requirement for reyes catheter. Complains of lower abodminal pain at this time. No fever, chills, nausea or vomting. Mild diarrhea this am but no blood in stool. (FERNANDA ALAN MD) Past History Travel History Traveled to [place] past 21 day No Medical History Any Pertinent Medical History? see below for history Neurological: NONE EENT: cataracts Cardiovascular: hypertension, hyperlipidemia, PVD Respiratory: COPD, emphysema, PULMONARY NODULES Gastrointestinal: GERD, ULCERS Hepatic: NONE Renal: NONE Musculoskeletal: osteoarthritis Psychiatric: anxiety Endocrine: BORDERLINE DM Blood Disorders: NONE Cancer(s): NONE RELOCATION COUNSELOR/Reproductive: NONE Other Medical Hx: BPH, hiatal hernia History of MRSA: No History of VRE: No History of CDIFF: No Surgical History Surgical History: cholecystectomy Psychosocial History Who do you live with Spouse Services at Home None What is your primary language Ukrainian Tobacco Use: Never used ETOH Use: occasional use Illicit Drug Use: denies illicit drug use Family History Family History, If Any: FATHER Cardiomegaly, Onset: 30-40. BROTHER FH: pancreatic cancer, Onset: 25-30. SISTER FH: breast cancer Hx Contributory? No (FERNANDA ALAN MD) Review of Systems Review of Systems Constitutional: Denies: chills, fever. EENTM: Reports: no symptoms. Respiratory: Denies: cough, short of breath. Cardiovascular: Denies: chest pain. GI: Reports: abdominal pain. Genitourinary: Reports: dysuria, frequency. Musculoskeletal: Reports: no symptoms. Skin: Reports: no symptoms. Neurological/Psychological: Reports: no symptoms. Hematologic/Endocrine: Reports: polyuria. Denies: bruising, bleeding, polydipsia. Immunologic/Allergic: Denies: splenectomy. All Other Systems: Reviewed and Negative (FERNANDA ALAN MD) Physical Exam Physical Exam General Appearance: well developed/nourished, alert, awake Head: atraumatic, normal appearance Eyes: Bilateral: normal appearance, PERRL, EOMI. Ears, Nose, Throat, Mouth: hearing grossly normal, moist mucous membrane Neck: normal inspection, supple, full range of motion Respiratory: normal breath sounds, chest non-tender, no respiratory distress Cardiovascular: regular rate/rhythm Peripheral Pulses: 2+ radial (R), 2+ radial (L) Gastrointestinal: normal bowel sounds, soft, tenderness (SUPRPUBIC) Male Genitals: normal genitalia Extremities: normal range of motion Neurologic/Psych: no motor/sensory deficits, awake, alert, oriented x 3 Skin: intact, normal color, warm/dry (FERNANDA ALAN MD) Core Measures ACS in differential dx? No Severe Sepsis Present: No Septic Shock Present: No (PAPI CRESPO DO) Progress Plan of Care: Orders Procedure Date/time Status Reyes, Insertion/Removal/Asses 12/18 111 Active CULTURE,URINE 12/18 1110 Active CULTURE,URINE 12/18 0949 Active URINALYSIS 12/18 0949 Complete Laboratory Tests 12/18/16 1005: Urinalysis HEAVY H, Urine Color YEL, Urine Clarity HAZY H, Urine pH 6.0, Ur Specific [place] <= 1.005, Urine Protein 30 H, Urine Ketones NEG, Urine Nitrite NEG, Urine Bilirubin NEG, Urine Urobilinogen 0.2, Ur Leukocyte Esterase LARGE H , Ur Microscopic SEDIMENT EXAMINED, Urine RBC 3-5, Urine WBC PACKD H, Ur Epithelial Cells RARE, Urine Bacteria MOD H, Urine Hemoglobin MOD H, Urine Glucose NEG Microbiology 12/18 1110 URINE ROUT: Urine Culture - ORD 12/18 1005 URINE ROUT: Urine Culture - RECD Hand-Off Endorsed To: PAPI CRESPO DO Endorsed Time: 1899 Pending: labs (FERNANDA ALAN MD) Differential Diagnosis: pyelonephritis, ureterolithiasis, urinary retention, UTI /pyelo Initial ED EKG: none (PAPI CRESPO DO) Departure Departure Time of Disposition: 1218 Disposition: HOME OR SELF CARE Condition: Stable Clinical Impression Primary Impression: UTI (urinary tract infection) Secondary Impressions: Urinary retention Referrals: SARA MONGE MD (PCP/Family) BEBO UP MD Additional Instructions: Take the flomax and antibiotic as directed. Please follow up with urology specialist listed. Return to the ER for any problems with the Reyes catheter. Departure Forms: Customer Survey General Discharge Information Prescriptions: Current Visit Scripts Sulfamethoxazole/Trimethoprim (Bactrim Ds Tablet) 1 TAB PO BID #19 TAB Tamsulosin HCl (Flomax) 1 CAP PO DAILY #30 CAP PA/CASINO DEALER Co-Sign Statement Statement: ED Attending supervision documentation- [] I saw and evaluated the patient. I have also reviewed all the pertinent lab results and diagnostic results. I agree with the findings and the plan of care as documented in the PA's/CASINO DEALER's documentation. [] I have reviewed the ED Record and agree with the PA's/CASINO DEALER's documentation. [] Additions or exceptions (if any) to the PAs/CASINO DEALER's note and plan are summarized below: [] (WAQAS GONZALEZ,FERNANDA)
[2016-12-18] MEDS ORDERED: BACTRIM DS TAB1 EACH PO (11:15)
[2016-12-18] MEDS ORDERED: FLOMAX0.4 M1 PO (11:15)
== END 2016-12-18 12:33 ==
LOC: ERH 09:46
DX: N39.0 Urinary tract infection, site not specified (principal); R33.9 Retention of urine, unspecified
CPT/HCPCS: 81001; 87086; 87147